=== PATIENT | female | born 1960 | race Caucasian/White ===

== ENCOUNTER 2018-03-22 10:27 | Outpatient (REF) | payer MEDICARE, SELFPAY ==
[2018-03-22 12:41] LABS: Hemoglobin A1C 5.2 % (4.5-6.2)
[2018-03-22 13:26] LABS: TSH (W/Ref FT4) 2.71 uIU/mL (0.358-3.74); Vitamin B12 488 pg/mL (193-986)
[2018-03-22 19:51] LABS: Bilirubin Negative (Negative); Blood Negative (Negative); Clarity Clear; Glucose Negative (Negative); Ketones Negative (Negative); Leukocyte Esterase Negative (Negative); Nitrite Negative (Negative); Specific Gravity <= 1.005 (1.005-1.025); Urobilinogen 0.2 EU/dL (Up TO 0.2); pH 6.5 (5-8)
[2018-03-23 07:29] LABS: Vitamin D 25 Total 22.5 ng/ml (30-100)
[2018-03-24 10:00] LABS: IgA 486 mg/dL (85-499); Interpretation SEE COMMENTS; Tissue Transglutaminase IgA 44.6 U/mL (<4.0)
== END 2018-03-22 10:47 ==
LOC: NCHCN 10:27
PROVIDERS: PCP Physician Assistant Medical; Visit Provider Family Medicine
DX: R35.0 Frequency of micturition (principal); R79.89 Other specified abnormal findings of blood chemistry; E03.9 Hypothyroidism, unspecified; K90.0 Celiac disease
CPT/HCPCS: 82306; 82784; 83516; 81003; 82607; 82746; 83036; 84443

== ENCOUNTER 2018-03-27 01:07 | Outpatient (CLI) | payer MEDICARE, MEDICAID, SELFPAY ==
--- NOTE | 2018-03-27 08:57 | DI.RAD_ITS ---
SYMPTOMS/DIAGNOSIS: RLQ ABD PAIN, R10.21, ASSESS QUANTITY OF STOOL KUB: Comparison CT scan is 12/05/17. There is a small amount of retained stool throughout the colon. No evidence of bowel obstruction is seen. The visualized lung bases are clear. Organomegaly is present. There are moderate degenerative changes again seen in the lumbar spine. IMPRESSION: Small amount of retained stool.
== END 2018-03-27 01:27 ==
PROVIDERS: PCP Physician Assistant Medical; Visit Provider Family Medicine
DX: R10.31 Right lower quadrant pain (principal); K59.00 Constipation, unspecified
CPT/HCPCS: 74018

== ENCOUNTER 2018-04-03 11:03 | Emergency (ER) | payer MEDICARE, MEDICAID, SELFPAY ==
--- NOTE | 2018-04-03 11:06 | NUR.NOTE ---
Nursing Note: Went to triage to bring patient back, patient is in bathroom
[2018-04-03 11:21] VITALS: BP 128/61; PULSE 70; RESP 1; TEMP 37.1; O2SAT 94
--- NOTE | 2018-04-03 12:38 | DI.CT_ITS ---
SYMPTOM/DIAGNOSIS: ABD PAIN, RLQ CT ABDOMEN AND PELVIS: CT scan of the abdomen and pelvis was performed following the uneventful administration of intravenous and oral contrast material. Comparison is 12/05/17. There is mild patient motion artifact. The lung bases are clear. The liver, spleen, pancreas, gallbladder, bile ducts, and adrenal glands are unremarkable. The kidneys show normal and symmetric enhancement. No evidence of a solid renal mass is seen. There is a large amount of urine within the bladder. The reproductive organs are unremarkable. The bowel has a normal appearance. There is a normal appendix present. The aorta is of normal caliber. No significant abdominal or pelvic adenopathy, ascites, or pneumoperitoneum is seen. Incidental note is made of a circum aortic left renal vein. Note is made of a small fat containing supraumbilical hernia. The bones are intact. IMPRESSION: 1. No evidence of an acute abdomen. 2. Markedly distended urinary bladder. The findings were discussed with Shekhar Russo of the Emergency Department on the date of the examination.
[2018-04-03] MEDS: Normal Saline 1,000 ML 1000 ML IV (12:54)
[2018-04-03 12:57] LABS: Abs Immature Grans 0.01 k/cumm (0.0-0.09); Absolute Basophil Count 0.03 k/cumm (0.0-0.2); Absolute Eosinophil Count 0.01 k/cumm (0.0-0.7); Absolute Lymphocyte Count 1.19 k/cumm (1.2-3.4); Absolute Monocyte Count 0.51 k/cumm (0.11-0.7); Absolute Neutrophil Count 3.49 k/cumm (1.2-6.7); Basophils % 0.6; Eosinophils % 0.2; HGB 15.4 g/dL (12.0-15.5); Immature Grans % 0.2; Lymphocytes % 22.7; Mean Corp. HGB Concentration 34.2 g/dL (32.0-36.0); Mean Corpuscular Hemoglobin 32.4 pg (27.0-33.0); Mean Corpuscular Volume 94.5 fL (80-95); Mean Platelet Volume 10.9 fL (8.0-11.0); Monocytes % 9.7; Neutrophils % 66.6; Platelet Count 236 x1000/uL (130-400); RBC 4.76 m/cumm (4.00-5.20); RBC Distribution Width 13.7 % (11.7-14.6); White Blood Cell Count 5.24 k/cumm (4.4-10.8)
[2018-04-03 13:14] LABS: ALT 32 U/L (12-78); AST 29 U/L (15-37); Albumin 3.9 g/dL (3.4-5.0); Alkaline Phosphatase 102 U/L (46-116); Anion Gap 8.5 mmol/L (3-11); BUN 10 mg/dL (7-18); Bilirubin, Total 0.8 mg/dL (0.2-1.0); CO2 28.5 mmol/L (21.0-32.0); CREATININE 0.63 mg/dL (0.55-1.02); Calcium 9.5 mg/dL (8.5-10.1); Chloride 96 mmol/L (98-107); Glucose 102 mg/dL (70-100); Lipase 95 U/L (73-393); Potassium 4.1 mmol/L (3.5-5.1); Sodium 133 mmol/L (136-145); Total Protein 7.7 g/dL (6.4-8.2)
[2018-04-03 14:56] LABS: Bilirubin Negative (Negative); Blood Negative (Negative); Clarity Clear; Glucose Negative (Negative); Ketones Negative (Negative); Leukocyte Esterase Negative (Negative); Nitrite Negative (Negative); Urobilinogen 0.2 EU/dL (Up TO 0.2)
--- NOTE | 2018-04-03 15:17 | W.ED.GENAD ---
Discharge Plan Disposition Patient Disposition: HOME Condition: Stable Discharge Details Chief Complaint: Abd Prob Clinical Impression: Urinary retention Primary Care Provider: Ady Awad ED Provider: Tony Russo Home Meds and New Rx's Prescriptions: Continue levothyroxine [Synthroid] 150 MCG tablet 150 mcg PO DAILY RF: 0 sertraline 25 MG tablet 0.25 mg PO DAILY RF: 0 Discontinued fluticasone [Flonase] 16 GM spray,suspension 50 mcg NS DAILY RF: 0 loratadine [Claritin Liqui-Gel] 10 MG capsule 10 mg PO DAILY RF: 0 Discharge Instructions Instructions: Lacey Catheter Placement and Care (ED), Acute Urinary Retention in Women (ED), Urinary Leg Bag (GEN) Additional Instructions: You should keep catheter in place and keep clean with above instructions. Please present to Dr. Rodriguez's office morning or Tuesday morning early in the morning for catheter removal and arrangement of follow-up appointment later that day. Otherwise you may resume your diet and activities as tolerated. Feel free to return to the emergency department for any new or significant worsening of symptoms. Referrals: Dani Rodriguez MD [ [facility] STAFF PHYSICIAN] - (Please present to the office on or TuesdayApril 06 or early in the morning for catheter removal. After the catheter is removed they will schedule a follow-up appointment for reassessment) Discharge Data Discharge Date/Time-TO BE ENTERED AT DEPARTURE: 04/03/18 17:12 Medical Decision Making Patient presenting to the emergency department for complaint of abdominal pain. Patient sister reports severe abdominal discomfort and sitting on the toilet a lot over the last 3 days with not a lot of bowel movements. Patient states lower abdominal pain. Denies any fever chills, nausea vomiting or diarrhea. Patient does have history of Down syndrome along with constipation and has had similar episodes in the past. Patient has had workup for constipation and even colonoscopy that showed no specific findings. Patient is tender in the right lower quadrant, and midline suprapubic which is severe otherwise no other acute findings noted. Plan to check labs, and CT image. Review of labs is unremarkable with patient was unable to urinate. Review of CT imaging shows significant distended bladder and staff assistant informed me that there were multiple episodes of patient attempting to go to the bathroom but was unable to. Given this Lacey catheter was placed and Dr. Rodriguez urologist was consulted. Dr. Rodriguez recommended Lacey catheter remaining in place until patient can follow-up in the office either or Tuesday and for patient is to present early in the morning for removal of catheter and follow-up appointment later that day. Discussed this plan of care and diagnosis with both patient and patient's sister and they were in agreement with plan. Informed them to return immediately for any fever chills new or significant worsening of symptoms. After discussion of diagnosis and plan of care patient is no further needs, questions, or concerns and states clear understanding to return to the emergency department for any worsening symptoms. Lab Data Lab results reviewed: Yes I reviewed the patient's lab results. HPI General Mode of arrival: ambulatory. Date/Time Provider Initiated Documentation: 04/03/18 11:17. Information obtained by: patient, family and RN notes reviewed. History of Present Illness 57 year old F presents to the emergency department with the chief complaint of Abd pain, described as moderate, with intensity rated at 7. Quality is described as aching and sharp, Patient started experiencing this day(s) (3) and it has been intermittent. No relieving factors improve symptom(s), No exacerbating factors reported . Patient notes no other symptoms.. Patient did receive the following treatments prior to arrival, other (Stool softener ) Related Data Home Medications Medication Instructions Recorded Confirmed levothyroxine [Synthroid] 150 mcg PO DAILY tab-cap NS 06/04/13 06/29/13 sertraline 0.25 mg PO DAILY tab-cap NS 06/04/13 06/29/13 Allergies Allergy/AdvReac Type Severity Reaction Status Date / Time dexamethasone Allergy Unknown Unverified 04/03/18 11:26 epinephrine Allergy Unknown Unverified 04/03/18 11:26 lidocaine Allergy Unknown Unverified 04/03/18 11:26 General Stated Complaint: Abd Prob ZACARIAS: 3 Review of Systems Constitutional Denies chills, Denies fever(s) and Reports poor appetite Cardiovascular Denies chest pain and Denies dyspnea Respiratory Denies dyspnea Gastrointestinal Reports as per HPI, Reports abdominal pain, Denies melena, Reports bloating, Denies change in bowel habits, Reports constipation, Denies diarrhea, Reports nausea and Denies vomiting Genitourinary Denies hematuria, Reports difficulty voiding, Denies urinary incontinence, Reports urinary hesitancy and Reports urinary urgency Integumentary/Breasts Denies rash [facility] Medical History Down syndrome (Acute) Social History Smoking/Tobacco Use Status: Former Tobacco Use Exam Const General: cooperative Orientation: alert, awake and oriented x3 Resp Effort & Inspection: normal respiratory effort and able to speak in complete sentences Auscultation: clear to auscultation bilaterally Cardio Rate: regular rate Rhythm: regular rhythm Heart Sounds: S1 normal and S2 normal GI Palpation: soft, no hepatosplenomegaly, not firm, no guarding, no masses, no pulsatile masses, not rigid, no splenomegaly and tender in the RLQ and at McBurney's point; Blackburn's sign negative and Rovsing's sign negative Auscultation: normal bowel sounds Back/Spine/Pelvis Back: no CVA tenderness Neuro General: alert, awake, oriented x3, gait normal and moves all extremities Course Vital Signs Temperature 37.1 C 04/03/18 11:21 Pulse 70 04/03/18 11:21 Respiratory Rate 1 L 04/03/18 11:21 Blood Pressure 128/61 04/03/18 11:21 Pulse Oximetry 94 L 04/03/18 11:21 Temperature 37.1 C 04/03/18 11:21 Temperature Source Temporal Artery Scan 04/03/18 11:21 Pulse 70 04/03/18 11:21 Respiratory Rate 1 L 04/03/18 11:21 Blood Pressure 128/61 04/03/18 11:21 Blood Pressure Position Sitting 04/03/18 11:21 Pulse Oximetry 94 L 04/03/18 11:21 Pain Level 8 04/03/18 11:21 Lab/Test Results Lab/Test Results: Laboratory Tests Range/Units 04/03/18 04/03/18 04/03/18 12:49 12:49 14:44 WBC (4.4-10.8) k/cumm 5.24 RBC (4.00-5.20) m/cumm 4.76 Hgb (12.0-15.5) g/dL 15.4 Hct (36.0-46.0) % 45.0 MCV (80-95) fL 94.5 MCH (27.0-33.0) pg 32.4 MCHC (32.0-36.0) g/dL 34.2 RDW (11.7-14.6) % 13.7 Plt Count (130-400) x1000/uL 236 MPV (8.0-11.0) fL 10.9 Immature Gran % 0.2 Neutrophils % 66.6 Lymphocytes % 22.7 Monocytes % 9.7 Eosinophils % 0.2 Basophils % 0.6 Absolute Neutrophils (1.2-6.7) k/cumm 3.49 Absolute Lymphocytes (1.2-3.4) k/cumm 1.19 L Absolute Monocytes (0.11-0.7) k/cumm 0.51 Absolute Eosinophils (0.0-0.7) k/cumm 0.01 Absolute Basophils (0.0-0.2) k/cumm 0.03 Sodium (136-145) mmol/L 133 L Potassium (3.5-5.1) mmol/L 4.1 Chloride (98-107) mmol/L 96 L Carbon Dioxide (21.0-32.0) mmol/L 28.5 Anion Gap (3-11) mmol/L 8.5 BUN (7-18) mg/dL 10 Creatinine (0.55-1.02) mg/dL 0.63 Estimated GFR/1.73 m2 (mL/min/1.73m2) >= 60.00 Glucose (70-100) mg/dL 102 H Calcium (8.5-10.1) mg/dL 9.5 Total Bilirubin (0.2-1.0) mg/dL 0.8 AST (15-37) U/L 29 ALT (12-78) U/L 32 Alkaline Phosphatase (46-116) U/L 102 Total Protein (6.4-8.2) g/dL 7.7 Albumin (3.4-5.0) g/dL 3.9 Lipase (73-393) U/L 95 Urine Color (Yellow) Yellow Urine Clarity Clear Urine pH (5-8) 6.0 Ur Specific [place] (1.005-1.025) 1.010 Urine Protein (Negative) mg/dL Negative Urine Ketones (Negative) mg/dL Negative Urine Blood (Negative) Negative Urine Nitrite (Negative) Negative Urine Bilirubin (Negative) Negative Urine Urobilinogen (Up TO 0.2) EU/dL 0.2 Ur Leukocyte Esterase (Negative) Negative Urine Glucose (Negative) mg/dL Negative
--- NOTE | 2018-04-03 15:20 | ED.GENADUL_ITS ---
Discharge Plan Disposition Patient Disposition: HOME Condition: Stable Discharge Details Chief Complaint: Abd Prob Clinical Impression: Urinary retention Primary Care Provider: Ady Awad ED Provider: Tony Russo Home Meds and New Rx's Prescriptions: Continue levothyroxine [Synthroid] 150 MCG tablet 150 mcg PO DAILY RF: 0 sertraline 25 MG tablet 0.25 mg PO DAILY RF: 0 Discontinued fluticasone [Flonase] 16 GM spray,suspension 50 mcg NS DAILY RF: 0 loratadine [Claritin Liqui-Gel] 10 MG capsule 10 mg PO DAILY RF: 0 Discharge Instructions Instructions: Lacey Catheter Placement and Care (ED), Acute Urinary Retention in Women (ED), Urinary Leg Bag (GEN) Additional Instructions: You should keep catheter in place and keep clean with above instructions. Please present to Dr. Rodriguez's office morning or Tuesday morning early in the morning for catheter removal and arrangement of follow-up appointment later that day. Otherwise you may resume your diet and activities as tolerated. Feel free to return to the emergency department for any new or significant worsening of symptoms. Referrals: Dani Rodriguez MD [ [facility] STAFF PHYSICIAN] - (Please present to the office on or TuesdayApril 06 or early in the morning for catheter removal. After the catheter is removed they will schedule a follow-up appointment for reassessment) Discharge Data Discharge Date/Time-TO BE ENTERED AT DEPARTURE: 04/03/18 17:12 Medical Decision Making Patient presenting to the emergency department for complaint of abdominal pain. Patient sister reports severe abdominal discomfort and sitting on the toilet a lot over the last 3 days with not a lot of bowel movements. Patient states lower abdominal pain. Denies any fever chills, nausea vomiting or diarrhea. Patient does have history of Down syndrome along with constipation and has had similar episodes in the past. Patient has had workup for constipation and even colonoscopy that showed no specific findings. Patient is tender in the right lower quadrant, and midline suprapubic which is severe otherwise no other acute findings noted. Plan to check labs, and CT image. Review of labs is unremarkable with patient was unable to urinate. Review of CT imaging shows significant distended bladder and administrative staff supervisor informed me that there were multiple episodes of patient attempting to go to the bathroom but was unable to. Given this Lacey catheter was placed and Dr. Rodriguez urologist was consulted. Dr. Rodriguez recommended Lacey catheter remaining in place until patient can follow-up in the office either or Tuesday and for patient is to present early in the morning for removal of catheter and follow-up appointment later that day. Discussed this plan of care and diagnosis with both patient and patient's sister and they were in agreement with plan. Informed them to return immediately for any fever chills new or significant worsening of symptoms. After discussion of diagnosis and plan of care patient is no further needs, questions, or concerns and states clear understanding to return to the emergency department for any worsening symptoms. Lab Data Lab results reviewed: Yes I reviewed the patient's lab results. HPI General Mode of arrival: ambulatory . Date/Time Provider Initiated Documentation: 04/03/18 11:17 . Information obtained by: patient, family and RN notes reviewed . History of Present Illness 57 year old F presents to the emergency department with the chief complaint of Abd pain, described as moderate, with intensity rated at 7. Quality is described as aching and sharp, Patient started experiencing this day(s) (3) and it has been intermittent. No relieving factors improve symptom(s), No exacerbating factors reported . Patient notes no other symptoms.. Patient did receive the following treatments prior to arrival, other (Stool softener ) Related Data Home Medications Medication Instructions Recorded Confirmed levothyroxine [Synthroid] 150 mcg PO DAILY tab-cap NS 06/04/13 06/29/13 sertraline 0.25 mg PO DAILY tab-cap NS 06/04/13 06/29/13 Allergies Allergy/AdvReac Type Severity Reaction Status Date / Time dexamethasone Allergy Unknown Unverified 04/03/18 11:26 epinephrine Allergy Unknown Unverified 04/03/18 11:26 lidocaine Allergy Unknown Unverified 04/03/18 11:26 General Stated Complaint: Abd Prob ZACARIAS: 3 Review of Systems Constitutional Denies chills, Denies fever(s) and Reports poor appetite Cardiovascular Denies chest pain and Denies dyspnea Respiratory Denies dyspnea Gastrointestinal Reports as per HPI, Reports abdominal pain, Denies melena, Reports bloating, Denies change in bowel habits, Reports constipation, Denies diarrhea, Reports nausea and Denies vomiting Genitourinary Denies hematuria, Reports difficulty voiding, Denies urinary incontinence, Reports urinary hesitancy and Reports urinary urgency Integumentary/Breasts Denies rash [facility] Medical History Down syndrome (Acute) Social History Smoking/Tobacco Use Status: Former Tobacco Use Exam Const General: cooperative Orientation: alert, awake and oriented x3 Resp Effort & Inspection: normal respiratory effort and able to speak in complete sentences Auscultation: clear to auscultation bilaterally Cardio Rate: regular rate Rhythm: regular rhythm Heart Sounds: S1 normal and S2 normal GI Palpation: soft, no hepatosplenomegaly, not firm, no guarding, no masses, no pulsatile masses, not rigid, no splenomegaly and tender in the RLQ and at McBurney's point; Blackburn's sign negative and Rovsing's sign negative Auscultation: normal bowel sounds Back/Spine/Pelvis Back: no CVA tenderness Neuro General: alert, awake, oriented x3, gait normal and moves all extremities Course Vital Signs Temperature 37.1 C 04/03/18 11:21 Pulse 70 04/03/18 11:21 Respiratory Rate 1 L 04/03/18 11:21 Blood Pressure 128/61 04/03/18 11:21 Pulse Oximetry 94 L 04/03/18 11:21 Temperature 37.1 C 04/03/18 11:21 Temperature Source Temporal Artery Scan 04/03/18 11:21 Pulse 70 04/03/18 11:21 Respiratory Rate 1 L 04/03/18 11:21 Blood Pressure 128/61 04/03/18 11:21 Blood Pressure Position Sitting 04/03/18 11:21 Pulse Oximetry 94 L 04/03/18 11:21 Pain Level 8 04/03/18 11:21 Lab/Test Results Lab/Test Results: Laboratory Tests Range/Units 04/03/18 04/03/18 04/03/18 12:49 12:49 14:44 WBC (4.4-10.8) k/cumm 5.24 RBC (4.00-5.20) m/cumm 4.76 Hgb (12.0-15.5) g/dL 15.4 Hct (36.0-46.0) % 45.0 MCV (80-95) fL 94.5 MCH (27.0-33.0) pg 32.4 MCHC (32.0-36.0) g/dL 34.2 RDW (11.7-14.6) % 13.7 Plt Count (130-400) x1000/uL 236 MPV (8.0-11.0) fL 10.9 Immature Gran % 0.2 Neutrophils % 66.6 Lymphocytes % 22.7 Monocytes % 9.7 Eosinophils % 0.2 Basophils % 0.6 Absolute Neutrophils (1.2-6.7) k/cumm 3.49 Absolute Lymphocytes (1.2-3.4) k/cumm 1.19 L Absolute Monocytes (0.11-0.7) k/cumm 0.51 Absolute Eosinophils (0.0-0.7) k/cumm 0.01 Absolute Basophils (0.0-0.2) k/cumm 0.03 Sodium (136-145) mmol/L 133 L Potassium (3.5-5.1) mmol/L 4.1 Chloride (98-107) mmol/L 96 L Carbon Dioxide (21.0-32.0) mmol/L 28.5 Anion Gap (3-11) mmol/L 8.5 BUN (7-18) mg/dL 10 Creatinine (0.55-1.02) mg/dL 0.63 Estimated GFR/1.73 m2 (mL/min/1.73m2) >= 60.00 Glucose (70-100) mg/dL 102 H Calcium (8.5-10.1) mg/dL 9.5 Total Bilirubin (0.2-1.0) mg/dL 0.8 AST (15-37) U/L 29 ALT (12-78) U/L 32 Alkaline Phosphatase (46-116) U/L 102 Total Protein (6.4-8.2) g/dL 7.7 Albumin (3.4-5.0) g/dL 3.9 Lipase (73-393) U/L 95 Urine Color (Yellow) Yellow Urine Clarity Clear Urine pH (5-8) 6.0 Ur Specific [place] (1.005-1.025) 1.010 Urine Protein (Negative) mg/dL Negative Urine Ketones (Negative) mg/dL Negative Urine Blood (Negative) Negative Urine Nitrite (Negative) Negative Urine Bilirubin (Negative) Negative Urine Urobilinogen (Up TO 0.2) EU/dL 0.2 Ur Leukocyte Esterase (Negative) Negative Urine Glucose (Negative) mg/dL Negative
[2018-04-03 16:48] VITALS: BP 108/59; PULSE 69; RESP 16; O2SAT 99
== END 2018-04-03 17:12 | disposition home or self-care (01) ==
PROVIDERS: Emergency Provider Nurse Practitioner Family; PCP Physician Assistant Medical
DX: R33.9 Retention of urine, unspecified (principal); R10.31 Right lower quadrant pain; Q90.9 Down syndrome, unspecified
CPT/HCPCS: 36415; 51702; 80053; 83690; 96360; 99285; 74177; 81003; 85025; 99284

== ENCOUNTER → 2018-04-06 08:05 | Outpatient (BNVA) | payer MEDICARE, MEDICAID, SELFPAY | PROVIDERS: PCP Physician Assistant Medical; Visit Provider Urology | DX: R33.9 Retention of urine, unspecified (principal); K59.00 Constipation, unspecified; Q90.9 Down syndrome, unspecified | CPT/HCPCS: 51798; 99213 ==

== ENCOUNTER → 2018-04-25 08:47 | Outpatient (BNVA) | payer MEDICARE, MEDICAID, SELFPAY | PROVIDERS: PCP Physician Assistant Medical; Visit Provider Urology | DX: R33.9 Retention of urine, unspecified (principal); K59.00 Constipation, unspecified; Q90.9 Down syndrome, unspecified | CPT/HCPCS: 51798; 99213 ==

== ENCOUNTER 2018-05-08 00:50 | Outpatient (CLI) | payer MEDICARE, MEDICAID, SELFPAY ==
--- NOTE | 2018-05-08 13:50 | MERGE_ITS ---
*[facility]* *[facility]* [address] [place] [address] Date of study: 05/08/2018 Transthoracic Echocardiography M-mode, complete 2D, complete spectral Doppler, and color Doppler *STUDY CONCLUSIONS* Summary: 1. Left ventricle: The cavity size was normal. Systolic function was hyperdynamic. The estimated ejection fraction was 65-70%. Diastolic parameters were normal. There was no evidence of elevated ventricular filling pressure by Doppler parameters. 2. Aortic valve: There was mild stenosis. There was mild regurgitation. Peak velocity (S): 2.6m/sec. Mean gradient (S): 11.3mm Hg. VTI ratio of LVOT to aortic valve: 0.66. Valve area (VTI): 1.8cm^2. 3. Mitral valve: There was mild regurgitation. 4. Right ventricle: The cavity size was normal. Wall thickness was normal. Systolic function was normal. 5. Atrial septum: No defect or patent foramen ovale was identified. 6. Pulmonary arteries: Pulmonary systolic pressure was in the range of 25mm Hg to 35mm Hg. 7. Inferior vena cava: The vessel was normal in size. The respirophasic diameter changes were in the normal range (greater than or equal to 50%), consistent with normal central venous pressure. *PATIENT PRESENTATION* Height: 149.9cm ((59in) ) S/D Pressure: 132 / 60 Weight: 53.5kg ((117.8lb) ) BSA: 1.5m^2 Test start time: 02:00 PM. Test stop time: 03:00 PM. ORDERING Marisol Trotter REFERRING Marisol Trotter PERFORMING Unknown PERFORMING [facility] HAY BUCKLER Jessica Pryor, RT (R)(CT), RDCS *PROCEDURE DATA* Procedure information: This study was interpreted by [facility]. Pertinent images and digital data are archived for permanent storage and are available for subsequent review. Comparison was made to the study of 01/25/2002. Study status: Routine. Transthoracic echocardiography. M-mode, complete 2D, complete spectral Doppler, and color Doppler. A Transthoracic Echocardiogram was performed. Scanning was performed from the parasternal, apical, subcostal, and suprasternal notch acoustic windows. Images were obtained using an [id number] cardiac ultrasound machine. Image quality was adequate. Study completion: The patient tolerated the procedure well. History: PMH: Systolic heart murmur; echo 12/2001 no prophylaxis needed. down syndrome, loud systolic murmur, apparently has had prior echo but cannot find. *CARDIAC ANATOMY* Left ventricle: The cavity size was normal. Systolic function was hyperdynamic. The estimated ejection fraction was 65-70%. The tissue Doppler parameters were normal. Diastolic parameters were normal. There was no evidence of elevated ventricular filling pressure by Doppler parameters. Aortic valve: Trileaflet. Doppler: There was mild stenosis. There was mild regurgitation. VTI ratio of LVOT to aortic valve: 0.66. Valve area (VTI): 1.8cm^2. Indexed valve area (VTI): 1.2cm^2/m^2. Peak velocity ratio of LVOT to aortic valve: 0.56. Valve area (Vmax): 1.5cm^2. Indexed valve area (Vmax): 1cm^2/m^2. Mean velocity ratio of LVOT to aortic valve: 0.71. Valve area (Vmean): 1.9cm^2. Indexed valve area (Vmean): 1.3cm^2/m^2. Mean gradient (S): 11.3mm Hg. Peak gradient (S): 27.9mm Hg. Aorta: Aortic root: The aortic root was normal in size. Mitral valve: Doppler: There was no evidence for stenosis. There was mild regurgitation. Valve area by pressure half-time: 6cm^2. Indexed valve area by pressure half-time: 4cm^2/m^2. Peak gradient (D): 7.5mm Hg. Left atrium: The atrium was normal in size. Atrial septum: No defect or patent foramen ovale was identified. Right ventricle: The cavity size was normal. Wall thickness was normal. Systolic function was normal. Pulmonic valve: Doppler: There was no evidence for stenosis. There was mild regurgitation. Peak gradient (S): 6.8mm Hg. Tricuspid valve: Doppler: There was mild regurgitation. Pulmonary artery: Poorly visualized. Pulmonary systolic pressure was in the range of 25mm Hg to 35mm Hg. Right atrium: The atrium was normal in size. Pericardium: There was no pericardial effusion. Systemic veins: Inferior vena cava: The vessel was normal in size. The respirophasic diameter changes were in the normal range (greater than or equal to 50%), consistent with normal central venous pressure. Baseline ECG: Normal sinus rhythm. Measurements Left ventricle Value Reference LV ID, ED, PLAX 4.0 cm 3.5 - 6.0 LV ID, ES, PLAX 2.4 cm 2.1 - 4.0 LV PW thickness, ED, PLAX 0.8 cm LV end-diastolic volume, 1-p A2C 58 ml LV ejection fraction, 1-p A2C 68 % LV end-diastolic volume, 1-p A4C 60 ml LV ejection fraction, 1-p A4C 66 % LV e', lateral 0.153 m/sec LV E/e', lateral 9 LV e', medial 0.119 m/sec LV E/e', medial 12 LV e', average 0.136 m/sec LV E/e', average 10 Ventricular septum Value Reference IVS thickness, ED, PLAX 0.7 cm LVOT Value Reference LVOT ID, A-P 1.9 cm LVOT area 2.7 cm^2 LVOT peak velocity, S 1.48 m/sec LVOT mean velocity, S 1.1 m/sec LVOT VTI, S 30.5 cm LVOT peak gradient, S 8.7 mm Hg LVOT mean gradient, S 5.2 mm Hg Stroke volume (SV), LVOT DP 83 ml Stroke index (SV/bsa), LVOT DP 55 ml/m^2 Aortic valve Value Reference Aortic valve peak velocity, S 2.6 m/sec Aortic valve mean velocity, S 1.55 m/sec Aortic valve VTI, S 46.0 cm Aortic mean gradient, S 11.3 mm Hg Aortic peak gradient, S 27.9 mm Hg VTI ratio, LVOT/AV 0.66 Aortic valve area, VTI 1.8 cm^2 Velocity ratio, peak, LVOT/AV 0.56 Aortic valve area, peak velocity 1.5 cm^2 Velocity ratio, mean, LVOT/AV 0.71 Aortic valve area, mean velocity 1.9 cm^2 Aortic valve area/bsa, mean velocity 1.3 cm^2/m^2 Aorta Value Reference Aortic root ID, ED 2.5 cm Left atrium Value Reference LA ID, A-P, ES 2.7 cm LA ID/bsa, A-P 1.8 cm/m^2 <=2.2 LA area, ES, A4C 13.9 cm^2 8.8 - 23.4 LA area, ES, A2C 10 cm^2 LA volume/bsa, ES, 1-p A4C 23 ml/m^2 LA volume, ES, 2-p 25 ml LA volume/bsa, ES, 2-p 17 ml/m^2 LA/aortic root ratio 1.08 Mitral valve Value Reference Mitral E-wave peak velocity 1.37 m/sec Mitral A-wave peak velocity 1.81 m/sec Mitral deceleration time (L) 126 ms 150 - 230 Mitral pressure half-time 36 ms Mitral peak gradient, D 7.5 mm Hg Mitral E/A ratio, peak 0.76 Mitral valve area, PHT, DP 6 cm^2 Pulmonary veins Value Reference Pulmonary vein peak velocity, S 0.91 m/sec Pulmonary vein peak velocity, D 0.87 m/sec Pulmonary vein velocity ratio, peak, 1.04 S/D Pulmonary vein A-wave reversal peak 0.39 m/sec velocity Tricuspid valve Value Reference Tricuspid regurg peak velocity 2.6 m/sec Tricuspid peak RV-RA gradient 27.1 mm Hg Right atrium Value Reference RA area, ES, A4C 9.9 cm^2 8.3 - 19.5 Pulmonic valve Value Reference Pulmonic peak gradient, S 6.8 mm Hg Legend: (L) and (H) connie values outside specified reference range. I have personally reviewed the images and have reviewed and edited the reported findings. Electronically signed by Eligio Benson MD 05/08/2018 17:17
== END 2018-05-08 01:10 ==
PROVIDERS: PCP Physician Assistant Medical; Visit Provider Family Medicine
DX: R01.1 Cardiac murmur, unspecified (principal); I35.2 Nonrheumatic aortic (valve) stenosis with insufficiency; I34.0 Nonrheumatic mitral (valve) insufficiency; Q90.9 Down syndrome, unspecified
CPT/HCPCS: 93306

== ENCOUNTER 2018-05-16 01:27 | Outpatient (CLI) | payer MEDICARE, MEDICAID, SELFPAY ==
--- NOTE | 2018-05-16 15:06 | DI.RAD_ITS ---
SYMPTOMS/DIAGNOSIS: CELIAC DISEASE, HIGH TITERS 2015, K90.0, SCREENING FOR OSTEOPOROSIS, Z78.0 DEXA SCAN: The scanogram shows no compression fractures identified. Degenerative changes involving the lumbar spine are evident. t For the left forearm, a T score of -2.7 and a Z score of -1.7 indicate osteoporosis and an increased fracture risk. For the left hip, a T score of -2.7 and a Z score of -2.0 are consistent with osteoporosis and an increased fracture. For the lumbar spine, a T score of -0.5 and a Z score of 0.6 are within the normal range.
== END 2018-05-16 01:47 ==
PROVIDERS: PCP Physician Assistant Medical; Visit Provider Family Medicine
DX: K90.0 Celiac disease (principal); M81.0 Age-related osteoporosis without current pathological fracture
CPT/HCPCS: 77080

== ENCOUNTER → 2018-06-27 13:13 | Outpatient (BNVA) | payer MEDICARE, MEDICAID, SELFPAY | PROVIDERS: PCP Physician Assistant Medical; Visit Provider Urology | DX: R33.9 Retention of urine, unspecified (principal) | CPT/HCPCS: 51798; 99213 ==

== ENCOUNTER 2018-08-23 08:29 | Outpatient (REF) | payer MEDICARE, MEDICAID, SELFPAY ==
[2018-08-23 14:03] LABS: TSH (W/Ref FT4) 0.07 uIU/mL (0.358-3.74)
[2018-08-23 14:19] LABS: FREE T4 1.14 ng/dL (0.76-1.46)
[2018-08-24 07:57] LABS: Vitamin D 25 Total 25.7 ng/ml (30-100)
== END 2018-08-23 08:49 ==
LOC: NCHCN 08:29
PROVIDERS: PCP Physician Assistant Medical; Visit Provider Family Medicine
DX: E03.9 Hypothyroidism, unspecified (principal); M81.0 Age-related osteoporosis without current pathological fracture; K90.0 Celiac disease
CPT/HCPCS: 82306; 83516; 84439; 84443

== ENCOUNTER → 2018-09-22 10:19 | Outpatient (BNVA) | payer MEDICARE, MEDICAID, SELFPAY | PROVIDERS: PCP Physician Assistant Medical; Visit Provider Urology | DX: R33.9 Retention of urine, unspecified (principal); Q90.9 Down syndrome, unspecified | CPT/HCPCS: 51798; 99213 ==

== ENCOUNTER → 2018-12-22 09:51 | Outpatient (BNVA) | payer MEDICARE, MEDICAID, SELFPAY | PROVIDERS: PCP Family Medicine; Visit Provider Urology | DX: R33.9 Retention of urine, unspecified (principal); Q90.9 Down syndrome, unspecified | CPT/HCPCS: 51798; 99213 ==

== ENCOUNTER 2019-02-22 14:43 | Outpatient (REF) | payer MEDICARE, MEDICAID, SELFPAY ==
[2019-02-22 16:18] LABS: TSH (W/Ref FT4) 0.02 uIU/mL (0.36-3.74)
[2019-02-22 16:42] LABS: FREE T4 1.49 ng/dL (0.76-1.46)
[2019-02-23 23:42] LABS: Tissue Transglutaminase Ab IgA 18.8 U/mL
== END 2019-02-22 15:03 ==
LOC: NCHCN 14:43
PROVIDERS: PCP Family Medicine; Visit Provider Family Medicine
DX: E03.9 Hypothyroidism, unspecified (principal); K90.0 Celiac disease; M81.0 Age-related osteoporosis without current pathological fracture
CPT/HCPCS: 82306; 83516; 84439; 84443

== ENCOUNTER → 2019-03-16 12:25 | Outpatient (BNVA) | payer MEDICARE, MEDICAID, SELFPAY | PROVIDERS: PCP Family Medicine; Referring Provider Family Medicine; Visit Provider Urology | DX: R33.9 Retention of urine, unspecified (principal); Q90.9 Down syndrome, unspecified | CPT/HCPCS: 51798; 99212 ==

== ENCOUNTER → 2019-10-23 12:28 | Outpatient (BNVA) | payer MEDICARE, MEDICAID, SELFPAY | PROVIDERS: PCP Family Medicine; Referring Provider Family Medicine; Visit Provider Nurse Practitioner Gerontology | DX: R33.8 Other retention of urine (principal) | CPT/HCPCS: 99213 ==

== ENCOUNTER 2019-10-31 18:18 | Outpatient (REF) | payer MEDICARE, MEDICAID, SELFPAY ==
[2019-10-31 17:13] LABS: Bilirubin Negative (Negative); Blood Negative (Negative); Clarity Clear (Clear); Glucose Negative (Negative); Ketones Negative (Negative); Leukocyte Esterase Large (Negative); Nitrite Negative (Negative); Urobilinogen 0.2 EU/dL (Up TO 0.2); pH 7.5 (5-8)
[2019-10-31 17:26] LABS: RBC 0-2 HPF (0-2); WBC 20-50 HPF (0-5)
[2019-10-31 17:27] LABS: Bacteria Moderate HPF (Negative); C & S Indicated? No; Casts Negative LPF (Negative); Crystals Negative HPF (Negative); Epithelial Cells Moderate HPF (Negative); Mucus Trace (Negative)
== END 2019-10-31 18:38 ==
LOC: NCHCN 18:18
PROVIDERS: PCP Family Medicine; Visit Provider Family Medicine
DX: R33.9 Retention of urine, unspecified (principal); R41.3 Other amnesia
CPT/HCPCS: 81003; 81015

== ENCOUNTER 2019-11-14 19:00 | Outpatient (REF) | payer MEDICARE, MEDICAID, SELFPAY ==
[2019-11-14 20:16] LABS: TSH (W/Ref FT4) 0.37 uIU/mL (0.36-3.74)
[2019-11-15 04:54] LABS: Vitamin D 25 Total 43.8 ng/ml (30-100)
[2019-11-16 14:30] LABS: Mumps Antibody IgG Positive (See Note); Rubella IgG Ab (UVM) Positive (See Note)
[2019-11-17 06:54] LABS: Measles (Rubeola), IgM Negative (Negative)
[2019-11-19 16:18] LABS: Tissue Transglutaminase Ab IgA 12.6 U/mL; Tissue Transglutaminase Ab IgG 4.8 U/mL
== END 2019-11-14 19:20 ==
LOC: NCHCN 19:00
PROVIDERS: PCP Family Medicine; Visit Provider Family Medicine
DX: E03.9 Hypothyroidism, unspecified (principal); M81.0 Age-related osteoporosis without current pathological fracture; Z11.59 Encounter for screening for other viral diseases; Z01.84 Encounter for antibody response examination
CPT/HCPCS: 82306; 86765; 83516; 84443; 86735; 86762

== ENCOUNTER → 2020-02-12 12:54 | Outpatient (BNVA) | payer MEDICARE, MEDICAID, SELFPAY | PROVIDERS: PCP Family Medicine; Visit Provider Nurse Practitioner Gerontology | DX: R33.8 Other retention of urine (principal); Q90.9 Down syndrome, unspecified | CPT/HCPCS: 99213 ==

== ENCOUNTER 2020-08-04 17:03 | Outpatient (REF) | payer MEDICARE, MEDICAID, SELFPAY ==
--- NOTE | 2020-08-04 16:00 | PAPFT_PTH ---
PATIENT: Kalani Larry LOC: [facility]#:[id number] AGE/SX: 59/F ROOM: RE08/04/[address]: Marisol Trotter : 1960 BED: DIS: 08/04/2020 SPEC #: [id number] RECD: 08/04/20 18:18 STATUS: DIDIER REMikayla #: [id number] HERNAN: 08/04/20 16:[address]: Marisol Trotter DEPT: ON LICENSE OF [facility] Cytology RECD BY: Darlene Singh Tissues: 1 - CX/ENDOCX FOR PAP SMEARS Procedures: PAP THIN PREP/UVM Screening HPV DNA PROBE Comments: [id number]
--- OUTSIDE RECORDS SUMMARY | 2020-08-04 17:12 | XMS_ITS ---
:1960 Author Care Team Providers Name Role Phone DR. JO ANN TOMLINSON Primary Care Provider [phone] DR. JO ANN TOMLINSON Referring Provider [phone] Allergies Code Code System Name Reaction Severity Status Onset 61264 RxNorm Levothyroxine ? ? Active ? 6387 RxNorm Lidocaine ? ? Active ? Medications Name Status Start Date Stop Date ? ? amoxicillin 500 mg capsule Active ? Not a vailable Take 1 capsule every 8 hours by oral route as needed. sertraline 50 mg tablet Active ? Not avai lable Take 1 tablet every day by oral route. Synthroid 112 mcg tablet Active ? Not cece ilable Take 1 tablet every day by oral route. Vitamin B-12 Active ? Not available 100 MCG Problems None recorded. Procedures Date Name Performed by ? ? Colonoscopy Information not avai lable ? Total Knee Arthroplasty Information not available Notes: Right ? Carpal Tunnel Surgery Information not av ailable Notes: Right ? Tubal Ligation Information not avai lable Results Lab Results None recorded. Past Encounters None recorded. Social History Tobacco Smoking Status Former Smoker Vaccine List None recorded. Plan of Care Reminders Provider Appointments None ? ? recorded. Lab None ? ? recorded. Referral None ? ? recorded. Procedures None ? ? recorded. Surgeries None ? ? recorded. Imaging None ? ? recorded. Vitals Height Weight BMI Blood Pressure 149.86 cm 58.06 kg 25.9 kg/m2 120/52 mm[Hg]
[2020-08-04 18:59] LABS: Hemoglobin A1C 5.3 % (<5.7)
[2020-08-04 19:16] LABS: Vitamin D 25 Total 46.4 ng/ml (30-100)
[2020-08-04 19:21] LABS: BUN 15 mg/dL (7-18); CREATININE 0.9 mg/dL (0.55-1.02); Calcium 8.9 mg/dL (8.5-10.1); Chloride 104 mmol/L (98-107); Folate 6.6 ng/mL (8.6-20.0); Glucose 107 mg/dL (74-106); Potassium 4.3 mmol/L (3.5-5.1); Sodium 140 mmol/L (136-145); Vitamin B12 322 pg/mL (193-986)
[2020-08-06 11:25] LABS: Hepatitis C Ab w Rflx HCV PCR Negative (Negative)
[2020-08-06 11:43] LABS: HIV-1/2 Ag & Ab Screen Negative (Negative)
[2020-08-06 11:50] LABS: Syphilis Serology (RPR) Negative (Negative)
[2020-08-06 17:45] LABS: Tissue Transglutaminase Ab IgA 15.9 U/mL
== END 2020-08-04 17:04 | disposition home or self-care (01) ==
LOC: NCHCN 17:03
PROVIDERS: PCP Family Medicine; Visit Provider Family Medicine
DX: K90.0 Celiac disease (principal); E55.9 Vitamin D deficiency, unspecified; E03.9 Hypothyroidism, unspecified; R73.09 Other abnormal glucose; R41.3 Other amnesia; Q90.9 Down syndrome, unspecified; I73.00 Raynaud's syndrome without gangrene; Z11.4 Encounter for screening for human immunodeficiency virus [HIV]; Z11.59 Encounter for screening for other viral diseases; Z12.4 Encounter for screening for malignant neoplasm of cervix; Z11.51 Encounter for screening for human papillomavirus (HPV)
CPT/HCPCS: 80048; 82306; 86803; 87389; 88142; 82607; 82746; 83036; 83516; 84443; 86592; 87624

== ENCOUNTER → 2020-08-12 14:53 | Outpatient (BNVA) | payer MEDICARE, MEDICAID, SELFPAY | PROVIDERS: PCP Family Medicine; Referring Provider Family Medicine; Visit Provider Nurse Practitioner Gerontology | DX: R33.8 Other retention of urine (principal) | CPT/HCPCS: 51702; 99213 ==

== ENCOUNTER → 2020-08-14 14:55 | Outpatient (BNVA) | payer MEDICARE, MEDICAID, SELFPAY | PROVIDERS: PCP Family Medicine; Referring Provider Family Medicine; Visit Provider Nurse Practitioner Gerontology | DX: R33.8 Other retention of urine (principal) | CPT/HCPCS: 99213 ==

== ENCOUNTER 2020-09-06 04:31 | Observation (INO) | payer MEDICARE, MEDICAID, SELFPAY ==
[2020-09-06] VITALS (62 sets, daily range): BP systolic 93–153; BP diastolic 42–126; PULSE 55–109; RESP 12–20; TEMP 35.8–36.7; O2SAT 95–100
--- NOTE | 2020-09-06 04:36 | ED.GENADUL_ITS ---
Discharge Plan Disposition Patient Disposition: [facility] INPATIENT Condition: Fair Discharge Details Clinical Impression: New onset seizure Primary Care Provider: Marisol Trotter ED Provider: Benson Rojas Meds and New Rx's Prescriptions: No Action polyethylene glycol 3350 [Miralax] 17 gram powder in packet 17 gm PO DAILY Qty: 30 RF: 0 B12 Active 1,000 mcg tablet,chewable 1,000 mcg PO DAILY RF: 0 sertraline 25 mg tablet 25 mg PO DAILY RF: 0 levothyroxine [Synthroid] 100 mcg tablet 100 mcg PO DAILY RF: 0 cholecalciferol (vitamin D3) 25 mcg (1,000 unit) capsule 50 mcg PO DAILY RF: 0 amoxicillin 500 mg capsule 2,000 mg PO .prior to dental RF: 0 alendronate [Fosamax] 70 mg tablet 70 mg PO QWEEK RF: 0 Medical Decision Making Certainly sounds like probable seizure this morning with postictal period and now returned close to baseline. Recent head injury no prior history of seizure must consider ongoing or other intracranial hemorrhage. Does not appear to have any neck pain but given she is a Down syndrome patient, will obtain C-spine CT with head CT. Place IV and check laboratory studies. Will obtain straight cath urine. Will observe for any further neurologic change. 07:45 - Patient remains quite sleepy. She has sat up and looked around and said hi to her sister. Mostly sleeping and mostly still not really verbal. Sister states patient usually very verbal with good vocabulary. CT head and neck negative for any acute process. Evidence of old prior lacunar stroke. Labs unremarkable. Given prolonged post-ictal state with continued altered mental status have decided to load patient with Keppra pain as discussed with hospitalist for observation admission until back to baseline mental status. I do not suspect infectious cause with no history of illness and no fever with normal white count here. She does appear to be nonfocal and moves all extremities equally. Sister does remark that patient is slowly coming back to what she feels is baseline. At this point just remarkably sleeping still. Discussed with hospitalist who is accepted patient for admission. Lab Data Lab results reviewed: Yes I reviewed the patient's lab results. HPI General Mode of arrival: EMS . Date/Time Provider Initiated Documentation: 09/06/20 04:36 . Limitations to Documentation: altered mental status . Information obtained by: family and RN notes reviewed . HPI Narrative: Patient presents to the ED status post unresponsive event at home. 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 Patient has Down syndrome. Per the sister the patient had a fall few days ago with presumed head strike against a pool table. Patient has bruising and scrapes to the right side of her head and face. She was not evaluated at that time. Since then sister has been sleeping downstairs with the patient so as to prevent patient from getting up and wandering around at night. At about 3:00 this morning patient abruptly got up but sister told her it was not time to get up and patient went back to bed. Very shortly after that patient's breathing became different. Sister got up to see what was going on. Reports that the patient was unresponsive and stiff and rigid throughout. She began to have gurgling noises and abnormal respirations. Eventually the rigidness went away after 1 to 2 minutes. Patient was then unresponsive for a period of time. EMS was contacted. Patient was brought here and is now awake and baseline per sister. No prior history of seizures. No prior history of strokes. Related Data Home Medications Medication Instructions Recorded Confirmed polyethylene glycol 3350 17 gram 17 gm PO DAILY #30 each 04/06/18 09/06/20 oral powder packet sertraline 25 mg tablet 25 mg PO DAILY 02/12/20 09/06/20 alendronate 70 mg tablet 70 mg PO QWEEK 08/12/20 09/06/20 amoxicillin 500 mg capsule 2,000 mg PO .prior to dental cap 08/12/20 09/06/20 cholecalciferol (vitamin D3) 25 50 mcg PO DAILY cap 08/12/20 09/06/20 mcg (1,000 unit) capsule levothyroxine 100 mcg tablet 100 mcg PO DAILY 08/12/20 09/06/20 mecobalamin (vitamin B12) 1,000 1,000 mcg PO DAILY 08/12/20 09/06/20 mcg chewable tablet Previous Rx's Medication Instructions Recorded polyethylene glycol 3350 17 gram 17 gm PO DAILY #30 each 04/06/18 oral powder packet Allergies Allergy/AdvReac Type Severity Reaction Status Date / Time dexamethasone Allergy Unknown Unverified 09/06/20 04:50 epinephrine Allergy Unknown Unverified 09/06/20 04:50 lidocaine Allergy Unknown Unverified 09/06/20 04:50 levothyroxine AdvReac alopecia Verified 09/06/20 04:50 no generic Synthroid General ZACARIAS: 3 Review of Systems Narrative: 03/12 Review of Systems completed and is negative except as stated above in HPI (Systems reviewed: Const, Eyes, ENT, Resp, CV, GI, , MSK, Skin, Neuro) [facility] Medical History Abnormal gait Anxiety Aortic stenosis Celiac disease Down syndrome Hypothyroidism Memory impairment Osteoporosis Raynauds phenomenon Urinary retention with incomplete bladder emptying Ventral hernia Vitamin D deficiency Surgical History S/P TKR (total knee replacement) Social History Smoking/Tobacco Use Status: Former Tobacco Use Smoking risk assessment performed?: Yes Alcohol Intake: never Drug use: Never Substance use type: does not use Do you feel safe at home: Yes Do you feel safe in your relationship?: Yes Exam Narrative Exam Narrative: Const: WDWN female in NAD. HEENT: NC. Bruising around the right eye and cheek with abrasions near right zygomatic arch. Eyes: PERRL. EOMI Neck: Supple. Trachea midline. Lungs: Normal respiratory effort. Lungs are clear. Cor: RRR without murmur/gallop. Good radial pulses. GI: Soft. NT/ND. No guarding or rebound. Neuro: Awake and alert. Cranial nerves II - XII grossly intact. No gross motor or sensory deficit. Ext: No C/C/E. No deformity Skin: Warm and dry.
[2020-09-06 05:11] LABS: Absolute Basophil Count 0.07 10^3/uL (0.0-0.2); Absolute Eosinophil Count 0.07 10^3/uL (0.0-0.7); Absolute Lymphocyte Count 2.66 10^3/uL (1.2-3.4); Absolute Monocyte Count 0.58 10^3/uL (0.1-0.8); Absolute Neutrophil Count 2.39 10^3/uL (1.2-6.7); Basophils % 1.2; Eosinophils % 1.2; HCT 45.5 % (36.0-46.0); Lymphocytes % 46.1; MCH 32.3 pg (27.0-33.0); MCV 98.1 fL (80-95); Monocytes % 10.1; Neutrophils % 41.4; Nucleated RBC 0 %; Platelet Count 241 10^3/uL (130-400); RBC 4.64 10^6/uL (3.93-5.22); RDW 13.5 % (11.7-14.6); RDW-SD 49.2 fL; WBC 5.77 10^3/uL (4.4-10.8)
--- NOTE | 2020-09-06 05:27 | DI.CT_ITS ---
EXAM: CT HEAD CERVICAL SPINE WO CLINICAL HISTORY: recent fall with head injury. TECHNIQUE: Imaging Protocol: Axial computed tomography images with coronal and sagittal reformatted images were created and reviewed COMPARISON: No exams were available for comparison FINDINGS: The examination is limited due to patient motion artifact. CT Head: Ventricles and Extra axial spaces: Normal in size and morphology for the patient's age. Hemorrhage: None. Cerebral parenchyma: Old lacunar infarct in left basal ganglia. No evidence of an acute territorial infarct. Bilateral basal gangliar calcifications are present. Midline shift: None. Brainstem/Cerebellum: Normal. Calvarium: Normal. Visualized Paranasal sinuses/Mastoids: Clear. Soft Tissues: Unremarkable. CT Cervical Spine: Bones: No acute fracture or subluxation. Degenerative changes are seen in the cervical spine. There is straightening of the normal cervical lordosis. This may be due to muscle spasm or patient positio josseline. Soft Tissues: Unremarkable. Lung Apices: Clear. IMPRESSION: 1. No acute intracranial process. 2. No acute fracture or subluxation in the cervical spine. RADIATION DOSE DELIVERED: 1,312.02mGy.cm Total DLP DATA REPOSITORY: All CT scans at this facility are submitted to the National Radiology Data Registry (NRDR) Dose Index Registry (DIR) with the [employer] (ACR). RADIATION OPTIMIZATION: All CT scans at this facility use at least one of these dose optimization te chniques: automated exposure control; mA and/or kV adjustment per patient size (includes targeted exa ms where dose is matched to clinical indication); or iterative reconstruction.
[2020-09-06 05:32] LABS: ALT 32 U/L (14-59); AST 26 U/L (15-37); Albumin 3.3 g/dL (3.4-5.0); Alkaline Phosphatase 136 U/L (46-116); Anion Gap 6.2 mmol/L (3-11); BUN 15 mg/dL (7-18); Bilirubin, Total 0.3 mg/dL (0.2-1.0); CO2 29.8 mmol/L (21.0-32.0); Calcium 8.9 mg/dL (8.5-10.1); Chloride 104 mmol/L (98-107); Estimated GFR 57.15 (mL/min/1.73m2); Glucose 103 mg/dL (74-106); Magnesium 2.2 mg/dL (1.8-2.4); Potassium 3.7 mmol/L (3.5-5.1); Sodium 140 mmol/L (136-145); TSH 7.43 uIU/mL (0.36-3.74); Total Protein 7.7 g/dL (6.4-8.2)
[2020-09-06 06:01] LABS: Bilirubin Negative (Negative); Blood Negative (Negative); Clarity Clear (Clear); Glucose Negative (Negative); Ketones Negative (Negative); Leukocyte Esterase Negative (Negative); Nitrite Negative (Negative); Urobilinogen 0.2 EU/dL (Up TO 0.2)
[2020-09-06 06:11] LABS: FREE T4 0.92 ng/dL (0.76-1.46)
--- NOTE | 2020-09-06 06:55 | DI.VRAD_ITS ---
PROCEDURE INFORMATION: Exam: CT Head Without Contrast Exam date and time: 09/06/2020 4:53 AM Age: 59 years old Clinical indication: Injury or trauma; Blunt trauma (contusions or hematomas); Consciousness not specified; Injury details: Fall 08/31/20 with head injury and right temporal/periorbital bruising. Downs syndrome, ? seizure. TECHNIQUE: Imaging protocol: Computed tomography of the head without contrast. Radiation optimization: All CT scans at this facility use at least one of these dose optimization techniques: automated exposure control; mA and/or kV adjustment per patient size (includes targeted exams where dose is matched to clinical indication); or iterative reconstruction. COMPARISON: No relevant prior studies available. FINDINGS: Brain: There is a remote left gangliocapsular lacunar infarct. The bilateral basal ganglia calcifications. There is no evidence of acute intracranial hemorrhage or mass effect on the ventricular system. There are no extra-axial fluid collections or midline shift. The posterior fossa appears unremarkable. Cerebral ventricles: There are prominent sulci and mild ventriculomegaly. Bones/joints: No acute fracture. Paranasal sinuses: There are no air-fluid levels. Mastoid air cells: The visualized mastoid air cells are well aerated. Soft tissues: Unremarkable. IMPRESSION: 1. Involutional changes of the brain. 2. Remote lacunar infarct of the left gangliocapsular region. 3. No acute intracranial abnormality. PROCEDURE INFORMATION: Exam: CT Cervical Spine Without Contrast Exam date and time: 09/06/2020 4:53 AM Age: 59 years old Clinical indication: Injury or trauma; Blunt trauma (contusions or hematomas); Consciousness not specified; Injury details: Fall 08/31/20 with head injury and right temporal/periorbital bruising. Downs syndrome, ? seizure. TECHNIQUE: Imaging protocol: Computed tomography images of the cervical spine without contrast. Radiation optimization: All CT scans at this facility use at least one of these dose optimization techniques: automated exposure control; mA and/or kV adjustment per patient size (includes targeted exams where dose is matched to clinical indication); or iterative reconstruction. COMPARISON: No relevant prior studies available. FINDINGS: Bones/joints: No acute fracture. There is normal alignment. There is straightening of the normal cervical lordosis. There are anterior and lateral osteophytes. Discs/Spinal canal/Neural foramina: No significant disc protrusion. No severe spinal canal stenosis. No significant neural foraminal narrowing. There is degenerative disc disease at multiple levels, most prominent at C5-C6, C6-C7 and C7-T1. Lungs: Lung apices are normal. Soft tissues: There are no paraspinal fluid collections or hematoma. IMPRESSION: 1. No evidence of acute fracture or acute traumatic subluxation. 2. Multilevel degenerative disc disease and anterior osteophytes. Dictated and Authenticated by: Wilbur Greene MD. Ordering:JOSHUA Knowles MD
[2020-09-06] MEDS: levETIRAcetam 1,000 MG in Normal Saline 100 ML 400 MG IVPB (07:26)
[2020-09-06 08:20] LABS: Source Nasal/Nares
[2020-09-06] MEDS: Enoxaparin 40 MG/0.4 ML SYR SC (09:46)
[2020-09-06 14:56] LABS: COVID-19 PCR Negative (Negative)
--- NOTE | 2020-09-06 16:52 | HPE_ITS ---
Date of service: 09/06/20 Time of Service: 08:15 Assessment and Plan Assessment and plan (1) New onset seizure: Status: Acute Assessment and plan: No bleed or acute stroke on CT head w/o contrast. CT head with contrast schedule for tomorrow. No MRI available until Tuesday. Neurology consult; will see on Tuesday. Cont Keppra 500mg po BID; change to IV if doesn't arouse enough to take medications. (2) Old lacunar stroke without late effect: Status: Acute Assessment and plan: See the above. History of Present Illness History of Present Illness Chief Complaint: Seizure-like activity Narrative: This is a 59 yo female with Down syndrome. She presented to the ED after her sister witnessed the patient appearing rigid in all extremities along with being unresponsive. This occurred at appx 0300 on the AM of admission. The sister is the patients caregiver and was sleeping in a recliner next to the patients bed. The patient had been getting up in the night and wandering, which was not typical behavior. This was why the sister was sleeping in the recliner. The patient had been livingin her own apt attached to the sister's home, but during cov she moved into the basement family room to provide more interaction. A few days prior to this admission the sister heard the patient call out and she was found on the ground with a bleeding abrasion at the R periorbital area and a developing swelling at the R brow. She was helped up and then stated she felt fine and had no issues that were noted until the episode that brought her to the ED. After the seizure-like activity she was somnolent and only aroused intermittently and briefly in the ED.Her CT head showed no acute findings but an old lacunar infarct was present. Lab findings were unremarkable. Of note, the patients sister had recognized changes in the patients gate over the last several months; becoming more wide base. She also related that the patients speech, which had typically been fluent and intelligible, was becoming more garbled. Also noted was more forgetfulness. An outpt appt with Dr. oHu had been arranged. Review of Systems Unobtainable due to mental status [facility] Medical History Abnormal gait Anxiety Aortic stenosis Celiac disease Down syndrome Hypothyroidism Memory impairment Osteoporosis Raynauds phenomenon Urinary retention with incomplete bladder emptying Ventral hernia Vitamin D deficiency Surgical History S/P TKR (total knee replacement) Social History Smoking/Tobacco Use Status: Former Tobacco Use Smoking risk assessment performed?: Yes Alcohol Intake: never Drug use: Never Substance use type: does not use Do you feel safe at home: Yes Do you feel safe in your relationship?: Yes Meds Home Medications and Allergies Allergies Allergy/AdvReac Type Severity Reaction Status Date / Time dexamethasone Allergy Unknown Unverified 09/06/20 04:50 epinephrine Allergy Unknown Unverified 09/06/20 04:50 lidocaine Allergy Unknown Unverified 09/06/20 04:50 levothyroxine AdvReac alopecia Verified 09/06/20 04:50 no generic Synthroid Home Medications Medication Instructions Recorded Confirmed Type polyethylene glycol 3350 17 gram 17 gm PO DAILY #30 each 04/06/18 09/06/20 Rx oral powder packet sertraline 25 mg tablet 25 mg PO DAILY 02/12/20 09/06/20 History alendronate 70 mg tablet 70 mg PO QWEEK 08/12/20 09/06/20 History amoxicillin 500 mg capsule 2,000 mg PO .prior to dental cap 08/12/20 09/06/20 History cholecalciferol (vitamin D3) 25 50 mcg PO DAILY cap 08/12/20 09/06/20 History mcg (1,000 unit) capsule levothyroxine 100 mcg tablet 100 mcg PO DAILY 08/12/20 09/06/20 History mecobalamin (vitamin B12) 1,000 1,000 mcg PO DAILY 08/12/20 09/06/20 History mcg chewable tablet Exam Const Nutritional Appearance: overweight Orientation: other (somnolent) [facility] Head images: 1. bruising Neck Neck: supple and no JVD Resp Effort & Inspection: normal respiratory effort Auscultation: clear to auscultation bilaterally Cardio Rate: regular rate Rhythm: regular rhythm Heart Sounds: S1 normal and S2 normal GI Inspection: non-distended Palpation: soft Skin Full body images: 1. abrasion Neuro General: moves all extremities (spontaneously) and other (somnolent) Extrem General: no pedal edema Results Labs Result diagrams: 09/06/20 05:00 09/06/20 05:00 Labs: Laboratory Results - last 24 hr 09/06/20 09/06/20 09/06/20 05:00 05:00 05:00 WBC 5.77 RBC 4.64 Hgb 15.0 Hct 45.5 MCV 98.1 H MCH 32.3 MCHC 33.0 RDW 13.5 Plt Count 241 MPV 11.0 Immature Gran % 0.0 Neutrophils % 41.4 Lymphocytes % 46.1 Monocytes % 10.1 Eosinophils % 1.2 Basophils % 1.2 Nucleated RBC % 0 Absolute Neutrophils 2.39 Absolute Lymphocytes 2.66 Absolute Monocytes 0.58 Absolute Eosinophils 0.07 Absolute Basophils 0.07 Sodium 140 Potassium 3.7 Chloride 104 Carbon Dioxide 29.8 Anion Gap 6.2 BUN 15 Creatinine 1.0 Estimated GFR/1.73 m2 57.15 Glucose 103 Calcium 8.9 Magnesium 2.2 Total Bilirubin 0.3 AST 26 ALT 32 Alkaline Phosphatase 136 H Total Protein 7.7 Albumin 3.3 L TSH 7.43 H Free T4 0.92 Urine Color Urine Clarity Urine pH Ur Specific [place] Urine Protein Urine Ketones Urine Blood Urine Nitrite Urine Bilirubin Urine Urobilinogen Ur Leukocyte Esterase Urine Glucose COVID-19 Source SARS-CoV-2 (PCR) 09/06/20 09/06/20 05:53 07:55 WBC RBC Hgb Hct MCV MCH MCHC RDW Plt Count MPV Immature Gran % Neutrophils % Lymphocytes % Monocytes % Eosinophils % Basophils % Nucleated RBC % Absolute Neutrophils Absolute Lymphocytes Absolute Monocytes Absolute Eosinophils Absolute Basophils Sodium Potassium Chloride Carbon Dioxide Anion Gap BUN Creatinine Estimated GFR/1.73 m2 Glucose Calcium Magnesium Total Bilirubin AST ALT Alkaline Phosphatase Total Protein Albumin TSH Free T4 Urine Color Yellow Urine Clarity Clear Urine pH 7.0 Ur Specific [place] 1.020 Urine Protein Negative Urine Ketones Negative Urine Blood Negative Urine Nitrite Negative Urine Bilirubin Negative Urine Urobilinogen 0.2 Ur Leukocyte Esterase Negative Urine Glucose Negative COVID-19 Source Nasal/nares SARS-CoV-2 (PCR) Negative Last Vital Signs Temp 36.7 C 09/06/20 15:36 Pulse 60 09/06/20 15:36 Resp 17 09/06/20 15:36 BP 105/69 09/06/20 15:36 Pulse Ox 99 09/06/20 15:36 COVID-19 Screening Have you, or household traveled for leisure in last 14 days?: No Had IN PERSON contact w/suspected or confirmed C-19 person: No
[2020-09-06] MEDS: levETIRAcetam 250 MG TAB 500 MG PO (19:51)
[2020-09-07 00:36] VITALS: BP 102/69; PULSE 67; RESP 18; TEMP 35.3; O2SAT 96
[2020-09-07] MEDS: Levothyroxine 100 MCG TAB PO (06:30)
[2020-09-07 07:53] VITALS: BP 101/66; PULSE 59; RESP 17; TEMP 36.6; O2SAT 98
--- NOTE | 2020-09-07 08:00 | DI.CT_ITS ---
EXAM: CT HEAD WO CLINICAL HISTORY: new onset seizure. TECHNIQUE: Imaging Protocol: Axial computed tomography images with coronal and sagittal reformatted images were created and reviewed COMPARISON: CT CT HEAD CERVICAL SPINE WO from 09/06/2020 FINDINGS: The examination is limited due to patient motion artifact. Ventricles and Extra axial spaces: Normal in size and morphology for the patient's age. Hemorrhage: None. Cerebral parenchyma: There are areas of decreased attenuation in the white matter consistent with tolu rovascular ischemic change. There is an old left basal gangliar lacunar infarct. No acute territori al infarct is present. Bilateral physiologic basal gangliar calcifications are present. Midline shift: None. Brainstem/Cerebellum: Normal. Calvarium: Normal. Visualized Paranasal sinuses/Mastoids: Clear. Soft Tissues: Unremarkable. IMPRESSION: No acute intracranial process. RADIATION DOSE DELIVERED: 622.04mGy.cm Total DLP DATA REPOSITORY: All CT scans at this facility are submitted to the National Radiology Data Registry (NRDR) Dose Index Registry (DIR) with the [employer] (ACR). RADIATION OPTIMIZATION: All CT scans at this facility use at least one of these dose optimization te chniques: automated exposure control; mA and/or kV adjustment per patient size (includes targeted exa ms where dose is matched to clinical indication); or iterative reconstruction.
[2020-09-07] MEDS: Sertraline 25 MG TAB PO (08:31)
[2020-09-07] MEDS: Polyethylene Glycol 3350 17 GM PACKET PO (08:31)
[2020-09-07] MEDS: Cholecalciferol (Vitamin D3) 1,000 UNIT TAB 2000 UNITS PO (08:31)
[2020-09-07] MEDS: Normal Saline Flush 10 ML SYR IVP (08:31)
[2020-09-07] MEDS: levETIRAcetam 250 MG TAB 500 MG PO ×2 (08:31→19:19)
--- NOTE | 2020-09-07 09:19 | DI.VRAD_ITS ---
PROCEDURE INFORMATION: Exam: CT Head Without Contrast Exam date and time: 09/07/2020 8:26 AM Age: 59 years old Clinical indication: Other: New onset seizure TECHNIQUE: Imaging protocol: Computed tomography of the head without contrast. Radiation optimization: All CT scans at this facility use at least one of these dose optimization techniques: automated exposure control; mA and/or kV adjustment per patient size (includes targeted exams where dose is matched to clinical indication); or iterative reconstruction. COMPARISON: CT HEAD CERVICAL SPINE WO 09/06/2020 5:20 AM FINDINGS: Brain: As on the recent prior, there are moderate diffuse involutional changes of brain with limited white matter hypodensity suggestive of small vessel disease. Bilateral physiologic basal ganglia calcifications. No acute hemorrhage or acute territorial infarct. Old lacune versus dilated perivascular space on the left. Cerebral ventricles: No ventriculomegaly. Bones/joints: Unremarkable. No acute fracture. Paranasal sinuses: Visualized sinuses are unremarkable. No fluid levels. Mastoid air cells: Visualized mastoid air cells are well aerated. Soft tissues: Unremarkable. IMPRESSION: No acute abnormality and no significant change from the quite recent prior. Dictated and Authenticated by: Neal Foy MD. Ordering:TITA De Jesus MD
[2020-09-07] MEDS: Enoxaparin 40 MG/0.4 ML SYR SC (10:30)
--- NOTE | 2020-09-07 11:04 | PT.INIE ---
Date of service: 09/07/20 Time of Service: 11:04 PT Notes Visit Reasons: NEW ONSET SEIZURE Physical Therapy Inpatient Initial Evaluation Date: 09/07/2020 Referring Doctor: Neal English MD PT Orders: PT CONSULT: Eval/Treat Precautions: Fall. Standard. Activity as tolerated. Patient Profile/Admitting Diagnosis: Suzy is a 59-year-old female with Down syndrome and an old lacunar stroke with late effect who presented to the ED on 09/06/2020 due to unresponsive event at home with an associated fall a few days ago with presumed head strike against pool table (per chart). Patient is diagnosed with new onset seizure. PMHX: Medical History Abnormal gait Anxiety Aortic stenosis Celiac disease Down syndrome Hypothyroidism Memory impairment Osteoporosis Raynauds phenomenon Urinary retention with incomplete bladder emptying Ventral hernia Vitamin D deficiency Surgical History S/P TKR (total knee replacement) Social History/Home Situation: Lives with sister and sister's family in a private home with one-step to enter with rails. Independent with all indoor ambulation without an assistive device. Supervision for outdoors. Equipment Owned/DME: Single-point cane Subjective: Sister Debbie facilitated completion of initial evaluation today as patient seemed a bit shy, wary of new faces, and not completely willing to respond to questions. Objective: General Observation: Seated on bedside chair. Sister sitting on chair beside patient's chair. Contusion on R side of face from recent fall beginning to lighten. Not able to demonstrate full eye contact during conversation. Old R TKA scar faded out. Mental Status: Alert and oriented as to person, place, time, and purpose. Not able to demonstrate full eye contact during conversation. Requires additional time for processing of instructions. Pain: 0/10 ROM: Right Upper Extremity: Grossly WFL Left Upper Extremity: Grossly WFL Right Lower Extremity: Grossly WFL Left Lower Extremity: Grossly WFL Strength: Right Upper Extremity: Grossly 4/5 Left Upper Extremity: Grossly 4/5 Right Lower Extremity: Grossly 4/5 Left Lower Extremity: Grossly 4/5 Bed Mobility/Transfers: Rolling independent Supine to sit independent Sit to supine independent Sit to stand independent Stand to sit independent Bed to chair independent Chair to bed independent Gait: Distance of 460 feet requiring supervision assist. R foot everted more than the L. Per sister, patient demonstrates baseline level mobility. Balance: Static Sitting: Normal Dynamic Sitting: Normal Static Standing: Fair Dynamic Standing: Fair Special Tests: Mobility Limitations Standardized Measure [facility] AM-PAC 6 clicks Basic Mobility Inpatient Short Form: Raw Score: 24 CMS Score: 0% deficit Informed Consent/Education: Patient and patient's sister were instructed in purpose of PT consult. Assessment: Suzy demonstrates a baseline functional mobility level requiring no assistive device and supervision assist at this time due to being in unfamiliar environment. Sister Debbie was advised about using neon-colored tapes for visual cues on steps to address decrease in depth perception. Patient presents with clinical signs and symptoms consistent with current/admitting diagnoses that have resulted to mobility limitations, gait instability, generalized weakness, and impairment of motor control as demonstrated by the following impairment level findings: 1. Baseline strength to B UE/LE major muscle groups Impairments are contributing to the following functional limitations: 1. Continued need for supervision at home for overall safety per baseline level Patient is assessed [place] a 26562 moderate complexity based on the following: History: 59-year-old male with past medical history as indicated above Examination: Demonstrable impairment in strength, balance, and mobility level with underlying impairments and functional limitations as exhibited above as well as deficit score of 0% utilizing the [facility] Mobility Inpatient Short Form Presentation: Stable Decision Makin moderate complexity Goals: N/A. PT evaluation only. Plan of Care/Treatment Plan: N/A. PT evaluation only. DISCHARGE RECOMMENDATIONS: Home when medically cleared by hospitalist. No equipment needs at this time. May walk 1-2 times a day through the big hallway loop up to 400 feet with nursing staff and sister Debbie. TREATMENT CODE/TIME: 27296 x 29 minutes beginning at 11:04 AM. Thank you for the opportunity to participate in the care of this patient. Kaci Potter PT, DPT, CLT [facility] [place], [place]
--- NOTE | 2020-09-07 13:18 | W.PM.PROGNOT ---
Date of Service Date of service: 09/07/20 Time of Service: 13:18 Assessment and Plan Assessment and plan (1) Old lacunar stroke without late effect: Status: Acute Assessment and plan: CT head w/o acute findings. Not on a statin. (2) New onset seizure: Status: Acute Assessment and plan: No seizure-like activity noted since admission. EEG and neurology evaluation tomorrow. Cont Keppra 500mg po BID; tolerating well. Subjective Subjective Patient reports: no new complaints, tolerating a regular diet and afebrile; denies shortness of breath Interval history since last seen: No seizure-like activity noted Exam Const General: cooperative and no acute distress Nutritional Appearance: overweight Orientation: alert and oriented to person Eyes Periorbital: periorbital findings abnormal right periorbital ecchymosis Neck Neck: full ROM Resp Effort & Inspection: normal respiratory effort Auscultation: clear to auscultation bilaterally Cardio Rate: regular rate Rhythm: regular rhythm Heart Sounds: S1 normal and S2 normal Extrem General: no pedal edema and no calf tenderness Objective Last Vital Signs Temp 36.6 C 09/07/20 07:53 Pulse 59 L 09/07/20 07:53 Resp 17 09/07/20 07:53 BP 101/66 09/07/20 07:53 Pulse Ox 98 09/07/20 07:53 Laboratory Results - last 24 hr 09/06/20 07:55 SARS-CoV-2 (PCR) Negative
[2020-09-07 17:50] VITALS: BP 96/46; PULSE 65; RESP 15; TEMP 36; O2SAT 100
[2020-09-08] MEDS: Levothyroxine 100 MCG TAB PO (07:00)
[2020-09-08 07:24] VITALS: BP 106/62; PULSE 60; RESP 16; TEMP 36.6; O2SAT 96
--- NOTE | 2020-09-08 08:03 | INITIAL_ITS ---
- If Service Date Differs Date of service: 09/08/20 Time of Service: 08:03 Care Management Initial Assess REASON FOR HOSPITALIZATION:: New onset seizure PAST MEDICAL HISTORY/PAST SURGICAL HISTORY:: Abnormal gait. Anxiety. Aortic stenosis. Celiac disease. Down syndrome. Hypothyroidism. Memory impairment. Osteoporosis. Raynauds phenomenon. Urinary retention with incomplete bladder emptying. Ventral hernia. Vitamin D deficiency. S/P TKR (total knee replacement) PREVIOUS FUNCTIONAL STATUS/SOCIAL/FAMILY SUPPORTS:: The sister is the patients caregiver and was sleeping in a recliner next to the patients bed. The patient had been getting up in the night and wandering, which was not typical behavior. This was why the sister was sleeping in the recliner. The patient had been livingin her own apt attached to the sister's home, but during cov she moved into the basement family room to provide more interaction. A few days prior to this admission the sister heard the patient call out and she was found on the ground with a bleeding abrasion at the R periorbital area and a developing swelling at the R brow. She was helped up and then stated she felt fine and had no issues that were noted until the episode that brought her to the ED. After the seizure-like activity she was somnolent and only aroused intermittently and briefly in the ED.Her CT head showed no acute findings but an old lacunar infarct was present. Lab findings were unremarkable. Of note, the patients sister had recognized changes in the patients gate over the last several months; becoming more wide base. She also related that the patients speech, which had typically been fluent and intelligible, was becoming more garbled. Also noted was more forgetfulness. An outpt appt with Dr. Hou had been arranged. CURRENT FUNCTIONAL STATUS:: Kalani is pleasant in interaction, her sister is consistently at her bedside. ADVANCE DIRECTIVES:: SisterDebbie Has patient been provided with info about the portal/API?: No Did the patient sign up for the portal?: No CODE STATUS:: Full Code INSURANCE COVERAGE / FINANCIAL ISSUES:: Medicaid. Medicare CURRENT HOME/COMMUNITY SERVICES/EQUIPMENT:: Sister as finance insurance manager-independent with eating; requires assistance with all other ADLs. PRIMARY CARE PHYSICIAN:: Marisol Trotter POTENTIAL DISCHARGE NEEDS:: Follow up appointments. PATIENT/FAMILY EDUCATION NEEDS:: Review discharge instructions, discuss Ask Me Three. ANTICIPATED BARRIERS TO DISCHARGE:: None identified at this time. TRANSPORTATION:: Via private vehicle with her sister. PLAN:: Kalani will return home, where she resides with her sister. She will follow up with her PCP and plan of care as prescribed. She will transport via private vehicle with her sister, Debbie.
[2020-09-08] MEDS: levETIRAcetam 250 MG TAB 500 MG PO (08:52)
[2020-09-08] MEDS: Sertraline 25 MG TAB PO (08:52)
[2020-09-08] MEDS: Cholecalciferol (Vitamin D3) 1,000 UNIT TAB 2000 UNITS PO (08:52)
[2020-09-08] MEDS: Polyethylene Glycol 3350 17 GM PACKET PO (08:52)
--- NOTE | 2020-09-08 09:45 | CMDISCH_ITS ---
- If Service Date Differs Date of service: 09/08/20 Time of Service: 16:45 LACE Index Scoring Tool - Questions: Length of Stay (in days): 2 Acuity (Admit via E.D.?): Yes E.D. Visits: 1 - Answers: Total Score: 6 Risk of Readmission: Low Risk Care Management Discharge Reason for Hospitalization: New onset seizure Discharge Plan: Kalani will return home, where she resides with her sister. She will follow up with her PCP and plan of care as prescribed. She will transport via private vehicle with her sister, Debbie. Patient/Family Education Needs: Review discharge instructions, discuss Ask Me Three. Services Needed at Discharge: Homemaking Services (Sister as middle school combination teacher caregiver )
--- NOTE | 2020-09-08 15:43 | PDOC.EEG_ITS ---
Neurology EEG EEG: [facility] Department of Neurology INPATIENT EEG REPORT Date of Recordin09/08/20 Interpreting Physician: Dr. Linnette Hou Reason for study: Ms. Larry is a 59 year-old woman with Down syndrome who was witnessed to have a generalized tonic seizure. Current Medications: Current Medications Acetaminophen (Acetaminophen 325 Mg Tab) 650 mg PO Q4H PRN PRN Cholecalciferol (Cholecalciferol (Vitamin D3) 1,000 Unit Tab) 2,000 units PO DAILY [facility] Last Admin: 09/08/20 08:52 Dose: 2,000 units Documented by: Dimethicone/Zinc Oxide (Beatrice Protect Cream 142 Gm Tube) 0 gm TP PRN PRN Enoxaparin Sodium (Enoxaparin 40 Mg/0.4 Ml Syr) 40 mg SC Q24H [facility] Last Admin: 09/08/20 10:20 Dose: Not Given Documented by: IV Miscellaneous Supplies (Iv Access) 1 each IV DIRECTED [facility] Levetiracetam (Levetiracetam 250 Mg Tab) 500 mg PO BID [facility] Last Admin: 09/08/20 08:52 Dose: 500 mg Documented by: Levothyroxine Sodium (Levothyroxine 100 Mcg Tab) 100 mcg PO DAILY@0600 [facility] Last Admin: 09/08/20 07:00 Dose: 100 mcg Documented by: Magnesium Hydroxide (Milk Of Magnesia 30 Ml Cup) 30 ml PO DAILY PRN PRN Polyethylene Glycol (Polyethylene Glycol 3350 17 Gm Packet) 17 gm PO DAILY [facility] Last Admin: 09/08/20 08:52 Dose: 17 gm Documented by: Sertraline HCl (Sertraline 25 Mg Tab) 25 mg PO DAILY [facility] Last Admin: 09/08/20 08:52 Dose: 25 mg Documented by: Sodium Chloride (Normal Saline Flush 10 Ml Syr) 0 ml IVP PRN PRN Last Admin: 09/07/20 08:31 Dose: 10 ml Documented by: METHODS: A 21 channel digitized electroencephalogram was performed in the [facility] Med/Surg Floor or ICU. The 10/20 international system of electrode placement was used and bipolar and referential electrode montages were recorded. In addition to EEG the patient was monitored for EKG and lateral/vertical eye movements. Activation procedures of photic stimulation and hyperventilation were performed if applicable. Video was used during activation procedures and during events where applicable. The duration of the recording was 30 minutes. DESCRIPTION OF EEG: The patient was noted to be awake, drowsy, and asleep during the recording. During maximal wakefulness a 5-6-Hz posterior background rhythm was present which was poorly-modulated, symmetrical, reactive to eye opening, and of moderate voltage. With eye opening the background activity changed to a low voltage mixture of alpha, beta, and occasional theta range frequencies. Faster frequencies were present in the bilateral anterior head regions. There was a n ormal anterior-posterior voltage gradient. During drowsiness, there was attenuation of the posterior dominant background rhythm and vertex waves. Stage II sleep was present with symmetrical sleep spindles, K-complexes, and vertex waves. During wakefulness, there was intermittent generalized delta slowing, at times appearing consistent with triphasic waves. There were various moderate-amplitude focal sharp-waves at Fp2, F4, C3, F3, and F7; none of which were clearly epileptiform. Additionally, during sleep, there were moderate-amplitude generalized sharp waves also of unclear significance. Activating Procedures: Photic stimulation was performed which produced a symmetrical posterior driving response at various flash frequencies. Hyperventilation was not performed. EKG: EKG revealed normal sinus rhythm. INTERPRETATION: This EEG is abnormal due to: #1. Moderate generalized slowing with slowing of the posterior dominant rhythm. #2. Focal and generalized sharp-waves of unclear significance. PRIOR EEG: none CLINICAL CORRELATION: The background slowing is suggestive of a moderate diffuse cerebral encephalopathy of broad differential including toxic-metabolic etiology. No definite focal regions of cerebral dysfunction or epileptiform activity was present. Clinical correlation is advised. Linnette Hou MD
[2020-09-08 15:45] VITALS: BP 95/63; PULSE 61; RESP 16; TEMP 36.2; O2SAT 97
--- NOTE | 2020-09-08 16:06 | W.NEUROCONSU ---
Date of service: 09/08/20 Time of Service: 16:06 Assessment and Plan Assessment and plan (1) New onset seizure: Status: Acute (2) Down syndrome: Status: Acute (3) Dementia: Status: Chronic Assessment and plan: Ms. Larry is a 59 year-old, right-handed woman with Down Syndrome who has had a physical and cognitive decline over the last several years, but particularly in the last 2-3 years. 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 Along with this, epilepsy is quite common. She had a very clearly witnessed seizure with questionable other seizures at home - namely drop attacks. I agree with continuation of levetiracetam 500mg BID for seizure prevention. This may be contributing to her fatigue and hopefully should get better in the next 1-2 weeks which I discussed with sister along with other common ADRs. We discussed that seizures can be difficult to manage in this group. We discussed seizure safety and what to do in the event of another seizure. In regards to the CT findings - this is NOT an old infarct. 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 This is congenital, of no consequence, and needs no further testing, etc. Otherwise, given increased agitation/anxiety along with poor sleep, would consider switching sertraline to mirtazepine. I will defer to PCP. Finally, given increase in difficulty with transportation and above diagnoses, would consider outpatient referral to Palliative Care. She will follow-up in the neurology clinic in 4-6 weeks. History of Present Illness History of Present Illness Chief Complaint: seizure Narrative: Handedness: right. HPI: Ms. Larry is a 59 year-old woman with Down syndrome, hypothroidism, Celiac, Raynauds, osteoporosis, aortic stenosis, and vitamin D deficiency. Kalani's sister Debbie was available at bedside. Ms. Larry was admitted on 09/06/20 after a witnessed seizure around ~3am on the day of admission. About 1 week ago, Ms. Larry was found down in her room around 5am with bruising and lacerations to her right face. She had been noted to have increased falling in the last 1 year as well as night time wandering. For that reason, Debbie began sleeping in a recliner next to Kalani at night. She has observed her to get out of bed for no apparent reason many times during the night. On the day of admission, she again woke up and tried to get out of bed. Debbie was able to calm her and get her to lay back down. Approximately 2 minutes later, Kalani made a high-pitched keening noise and then was noted to have whole body rigidity lasting ~1 minute. After, she was quite lethargic with congested/wet breathing. EMS was called and she was brought to [facility]. In the ER, she had a negative laboratory work-up. She underwent CT head x 2. I reviewed both images. There were no acute findings. She had moderate generalized atrophy. She has an enlarged Virchow-Rodolfo space in the left basal ganglia. She was started on levetiracetam 500mg BID. Per Debbie, Kalani has made good recovery, but remains more tired than usual. Otherwise, Debbie has noted a several year global physical and cognitive decline including memory, ability to write, balance, dysarthria, and inability to perform ADLs, to name a few; worse in the last 2-3 years. In the last 1 year, she has been having intermittent falls. Kalani has lived with Debbie for ~20 years. 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 Kalani spends most of her time watching TV - she watches [employer] on the [employer] daily for most of the day - Kalani could not recall the name of her favorite TV show. 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 Debbie has also noted various spells in the last 1 year. At times, she will suddenly lose tone - such as a head drop. Unclear if drop attackes have contributed to her falls. Kalani has also been witnessed to have odd behavior such as swatting at a bug when none is there - but these aren't clearly seizures as Debbie can get her attention and then stops this. Kalani tends to stare off quite often, but this is not obvioiusly associated with behavioral arrest and complete inattention. Kalani is not as bubbly and happy as she has been in the past. Per Debbie, Kalani has become more tense overtime. She is on sertraline, but unclear if this has helped with mood or not. Kalani is unable to tolerate an MRI brain. She had an EEG this afternoon which showed moderate generalized slowing and non-specific sharp-waves. Consults Requesting physician: Neal English Review of Systems All systems reviewed & are unremarkable except as noted in HPI and below PFSH Medical History Abnormal gait Anxiety Aortic stenosis Celiac disease Down syndrome Hypothyroidism Memory impairment Osteoporosis Raynauds phenomenon Urinary retention with incomplete bladder emptying Ventral hernia Vitamin D deficiency Surgical History S/P TKR (total knee replacement) Social History Smoking/Tobacco Use Status: Former Tobacco Use Smoking risk assessment performed?: Yes Alcohol Intake: never Drug use: Never Substance use type: does not use Do you feel safe at home: Yes Do you feel safe in your relationship?: Yes Visit Medication and Allergies Active Medications Generic Name Dose Route Start Last Admin Trade Name Freq PRN Reason Stop Dose Admin Acetaminophen 650 mg 09/06/20 09:08 Acetaminophen 325 Mg Tab PO Q4H PRN PRN Cholecalciferol 2,000 units 09/07/20 08:30 09/08/20 08:52 Cholecalciferol (Vitamin D3) 1,000 Unit Tab PO 2,000 units DAILY MAGGIE Administration Dimethicone/Zinc Oxide 0 gm 09/06/20 09:08 Beatrice Protect Cream 142 Gm Tube TP PRN PRN Enoxaparin Sodium 40 mg 09/06/20 10:00 09/08/20 10:20 Enoxaparin 40 Mg/0.4 Ml Syr SC Not Given Q24H MAGGIE IV Miscellaneous Supplies 1 each 09/06/20 05:00 Iv Access IV DIRECTED MAGGIE Levetiracetam 500 mg 09/06/20 20:00 09/08/20 08:52 Levetiracetam 250 Mg Tab PO 500 mg BID MAGGIE Administration Levothyroxine Sodium 100 mcg 09/06/20 06:00 09/08/20 07:00 Levothyroxine 100 Mcg Tab PO 100 mcg DAILY@0600 MAGGIE Administration Magnesium Hydroxide 30 ml 09/06/20 09:08 Milk Of Magnesia 30 Ml Cup PO DAILY PRN PRN Polyethylene Glycol 17 gm 09/07/20 08:30 09/08/20 08:52 Polyethylene Glycol 3350 17 Gm Packet PO 17 gm DAILY MAGIGE Administration Sertraline HCl 25 mg 09/07/20 08:30 09/08/20 08:52 Sertraline 25 Mg Tab PO 25 mg DAILY MAGGIE Administration Sodium Chloride 0 ml 09/06/20 04:49 09/07/20 08:31 Normal Saline Flush 10 Ml Syr IVP 10 ml PRN PRN Administration Allergies dexamethasone Allergy (Unknown, Unverified 09/06/20 04:50) epinephrine Allergy (Unknown, Unverified 09/06/20 04:50) lidocaine Allergy (Unknown, Unverified 09/06/20 04:50) levothyroxine Adverse Reaction (Verified 09/06/20 04:50) alopecia no generic Synthroid Exam Narrative Exam Narrative: Physical Exam: Constitutional: Patient of apparent stated age, well nourished, well developed, no acute distress; Down syndrome facies Neck: Supple, no meningismus CV: RRR, S1, S2, no murmur Resp: CTAB Abd: Soft, nontender, nondistended, +BS Neuro: MS/Language/Speech: awake though maybe a bit lethargic vs psychomotor retardation/bradykinetic, oriented to self only, reduced fluency; able to follow simple commands only; mild dysarthria; could not tell me her age; knew her birthday was on the but couldn't recall the month; knew she lived with her sister but not what town; was unable to write her name down for me; intead wrote a letter 'i' and then later a 'd; also, I made a line for her to write her name and she wrote both letters below it.... CN: PERRL, EOMI, visual clements appear full though hard to tell, trigeminal sensation intact, no facial asymmetry, hearing intact Motor: Normal bulk and tone. No cogwheel rigidity. Diffuse bradykinesia. FMM reduced bilaterally, no pronator drift. 5/5 strength in bilateral upper extremities. Was able to move LE on command but would not cooperate with formal strength testing of the legs. Sensation: Intact to PP throughout Reflexes: hyporeflexic throughout, downgoing toes Coordination: no ataxia Gait: not performed Results Last Vital Signs Temp 36.2 C L 09/08/20 15:45 Pulse 61 09/08/20 15:45 Resp 16 09/08/20 15:45 BP 95/63 L 09/08/20 15:45 Pulse Ox 97 09/08/20 15:45 Labs Result diagrams: 09/06/20 05:00 09/06/20 05:00
--- NOTE | 2020-09-08 17:55 | W.PM.DS.N ---
Date of service: 09/08/20 Time of Service: 17:55 DS: Diagnosis Discharge Diagnosis (1) New onset seizure: Status: Acute (2) Down syndrome: Status: Acute (3) Dementia: Status: Chronic Discharge Plan Disposition Patient Disposition: HOME Condition: Improving Discharge Details Reason For Visit: NEW ONSET SEIZURE Admit Date/Time: 09/06/20 07:42 Admit Provider: Neal English Attending Provider: Neal English Primary Care Provider: Marisol Trotter [place] Hospital Course Hospital Course: This is a 59 yo female with Down syndrome. She presented to the ED after her sister witnessed the patient appearing rigid in all extremities along with being unresponsive. This occurred at appx 0300 on the AM of admission. The sister is the patients caregiver and was sleeping in a recliner next to the patients bed. The patient had been getting up in the night and wandering, which was not typical behavior. This was why the sister was sleeping in the recliner. The patient had been livingin her own apt attached to the sister's home, but during cov she moved into the basement family room to provide more interaction. A few days prior to this admission the sister heard the patient call out and she was found on the ground with a bleeding abrasion at the R periorbital area and a developing swelling at the R brow. She was helped up and then stated she felt fine and had no issues that were noted until the episode that brought her to the ED. After the seizure-like activity she was somnolent and only aroused intermittently and briefly in the ED.Her CT head showed no acute findings but an old lacunar infarct was present though neurology stated this was not an old infarct but a benign CSF space / Virchow-Rodolfo space that was slightly enlarged. Lab findings were unremarkable. Of note, the patients sister had recognized changes in the patients gate over the last several months; becoming more wide base. She also related that the patients speech, which had typically been fluent and intelligible, was becoming more garbled. Also noted was more forgetfulness. An outpt appt with Dr. Hou had been arranged. Dr Hou evaluated her EEG that was obtained. EEG showed moderate generalized slowing with slowing of the posterior dominant rhythm and focal generalized sharp-waves of unclear significance. This was interpreted as background slowing suggestive of moderate diffuse cerebral encephalopathy of broad differential including toxic-metabolic etiology. No definite focal regions of cerebral dysfunction or epileptiform activity present. The clinical picture did look for likely to be a new onset seizure disorder and Keppra 500mg BID was initiated after a loading dose. No seizure activity noted during this hospitalization. She will f/u as an outpt with Neurology. Follow up with PCP in 1-2 weeks. Home Meds and New Rx's Prescriptions: Continued polyethylene glycol 3350 [Miralax] 17 gram powder in packet 17 gm PO DAILY Qty: 30 RF: 0 levothyroxine [Synthroid] 100 mcg tablet 100 mcg PO DAILY RF: 0 No Action levetiracetam 500 mg tablet 500 mg PO BID Qty: 180 RF: 3 Ensure High Protein Liquid 250 ml PO DAILY AM 14 Days Qty: 2844 RF: 2 sertraline 50 mg tablet 50 mg PO DAILY Qty: 90 RF: 3 Discharge Instructions Instructions: New-Onset Seizure in Adults (ED) Stand Alone Forms: Nursing Discharge Form Referrals: Marisol Trotter MD [Primary Care Provider] - (Please call tomorrow for follow up in 1-2 weeks.) Activity:: Activity as Tolerated Equipment/Supplies:: No Equipment Needed Diet:: As Tolerated Discharge Orders Discharge Orders: Discharge Order (Routine); Ordered 09/08/20 Ordered By: Neal English Discharge Data Discharge Date/Time-TO BE ENTERED AT DEPARTURE: 09/08/20 18:26 DS: Summary Time Spent with Patient providing and/or coordinating discharge services: Greater than 30 minutes Status at Discharge Functional status at discharge: independent ambulation Overall status at discharge: patient is not back to baseline Mental Status: other (Dev delayed secondary to Downs) Speech and Movement: delayed speech Mood: congruent mood and other (Dev delayed secondary to Downs) Affect: normal affect Exam Psych Mental Status: other (Dev delayed secondary to Downs) Speech and Movement: delayed speech Mood: congruent mood and other (Dev delayed secondary to Downs) Affect: normal affect DS: Data Vitals/I&O Vitals and I&O: Vital Signs Temperature 36.2 C L 09/08/20 15:45 Temperature Source Tympanic 09/08/20 15:45 Pulse 61 09/08/20 15:45 Pulse Rhythm Regular 09/08/20 09:00 Respiratory Rate 16 09/08/20 15:45 Respiratory Effort Non-Labored 09/08/20 09:00 Respiratory Depth Normal 09/08/20 09:00 Respiratory Pattern Normal 09/08/20 09:00 Blood Pressure 95/63 L 09/08/20 15:45 Blood Pressure Mean 78 09/06/20 08:20 Pulse Oximetry 97 09/08/20 15:45 Oxygen Delivery Method Room Air 09/08/20 15:45 Oxygen Flow Rate 0 09/08/20 15:45 Pain Level 0 09/08/20 15:45 Intake & Output 09/07/20 09/08/20 09/08/20 23:59 11:59 23:59 Intake Total 365 / 965 480 / 1320 840 / 1320 Balance 365 / 965 480 / 1320 840 / 1320 Intake: IV 5 / 5 Oral 360 / 960 480 / 1320 840 / 1320 Other: Comment Patient's caregiver, Debbie, helps patient to toilet and reports normal urination. Patient does not report any concerns to nurse. voiding with industrial illuminating engineer. no complaints Voiding Methods Toilet [facility] Medical History (Updated 02/17/21 @ 15:03 by Cecy Blackmon MD) Abnormal gait Anxiety Aortic stenosis Cannot walk Celiac disease DNI (do not intubate) DNR (do not resuscitate) Down syndrome Early onset Alzheimer's dementia Encounter for hospice care discussion Lacey catheter in place Gluten intolerance Hallucinations Health care proxy on file sister Mayte House brother Kvng Larry History of smoking Hospice care patient Hypothyroidism Lives with caregiver sister Debbie Dominique since 2000 Memory impairment Osteoporosis Palliative care patient POLST (Physician Orders for Life-Sustaining Treatment) Poor circulation of extremity both feet cyanotic Raynauds phenomenon Seizure disorder new as of August 2020; linked to her Alz Dementia Unintentional weight loss Urinary and fecal incontinence Urinary retention with incomplete bladder emptying UTI (urinary tract infection) Ventral hernia Vitamin D deficiency Surgical History S/P TKR (total knee replacement) Family History (Updated 12/31/20 @ 15:23 by Cecy Blackmon MD) Brother Myocardial infarction Heart disease Sister Diabetes Brother No problems noted. Sister No problems noted. Social History (Updated 12/31/20 @ 15:31 by Cecy Blackmon MD) Smoking/Tobacco Use Status: Former Tobacco Use Tobacco: How many years used: 20 Smoking risk assessment performed?: Yes Alcohol Intake: never Drug use: Never Substance use type: does not use Caregiver/Support person: Yes Household members: family Housing: house Number of Children: 0 Communication Needs: Hard of Hearing and Corrective Lenses Education Level: high school Do you need help understanding health information?: Always current occupation: disabled Pets and animals: Yes Pets and animals: cat(s) Current gender identity: female What is your relationship status?: never How often do you talk on the phone with friends or family?: never How often do you get together with friends or relatives?: three or more times per week Panel score (0-1 are the most socially isolated patients): 1 What type of physical activity do you participate in: bed-bound and sedentary lifestyle Frequency: does not exercise Karen/Roman Catholic: Moravian Special karen needs: No Agree to transfusion: No Seatbelt use: always Working smoke detector in home: Yes Fire extinguisher in home: Yes Do you feel safe at home: Yes Do you feel safe in your relationship?: Yes Additional Social history: I met with Debbie Uriarte (sister and caregiver), Mayte (sister and co-guardian), Kvng (brother and co-guardian) and Debbie's , [place]. Kalani spoke a word or two at a time in answer to a question. No spontaneous speech. She was in a hospital bed on a pressurized mattress in the living room. Debbie said she set her bed up there about 2-3 weeks ago. Kalani recently had a UTI; she is still taking bactrim. She was in SEVERE pain during this time, though she could not locate where her pain was. Her sister thinks her catheter was also malpositioned at the time of her UTI. Her primary HH nurse, Magnolia, repositioned her catheter and she felt much better. Kalani has been hallucinating recently, and reaching up into the air. All her surviving siblings appear to work together well. No tensions noted. Kalani does have a boyfriend, Braxton, with [employer]. She wore an engagement ring for years. Braxton still visits regularly.
== END 2020-09-08 18:26 | disposition home or self-care (01) ==
LOC: ER 07:56 → MS 08:43
PROVIDERS: Admitting Provider Family Medicine; Emergency Provider Emergency Medicine; PCP Family Medicine; Visit Provider Family Medicine
DX: R56.9 Unspecified convulsions (principal); Q90.9 Down syndrome, unspecified; G30.9 Alzheimer's disease, unspecified; F02.80 Dementia in other diseases classified elsewhere, unspecified severity, without behavioral disturbance, psychotic disturbance, mood disturbance, and anxiety; E03.9 Hypothyroidism, unspecified; K90.0 Celiac disease; I73.00 Raynaud's syndrome without gangrene; M81.0 Age-related osteoporosis without current pathological fracture; E55.9 Vitamin D deficiency, unspecified; I35.0 Nonrheumatic aortic (valve) stenosis; Z86.73 Personal history of transient ischemic attack (TIA), and cerebral infarction without residual deficits; R26.9 Unspecified abnormalities of gait and mobility; R33.9 Retention of urine, unspecified
CPT/HCPCS: 36415; 80053; 87635; 95819; 96365; 97162; 99215; 99223; 99232; 99285; J1650; 70450; 72125; 81003; 83735; 84439; 84443; 85025; 99217; 99220; G0378; J1953

== ENCOUNTER → 2020-09-08 07:58 | Outpatient (BNVA) | payer MEDICARE, MEDICAID, SELFPAY | PROVIDERS: PCP Family Medicine; Referring Provider Family Medicine; Visit Provider Psychiatry & Neurology Neurology | DX: R69 Illness, unspecified (principal) ==

== ENCOUNTER → 2020-09-18 14:05 | Outpatient (BNVA) | payer MEDICARE, MEDICAID, SELFPAY | PROVIDERS: PCP Family Medicine; Referring Provider Family Medicine; Visit Provider Nurse Practitioner Gerontology | DX: R33.8 Other retention of urine (principal) | CPT/HCPCS: 99213 ==

== ENCOUNTER → 2020-10-14 13:50 | Outpatient (BNVA) | payer MEDICARE, MEDICAID, SELFPAY | PROVIDERS: PCP Family Medicine; Referring Provider Family Medicine; Visit Provider Psychiatry & Neurology Neurology | DX: R56.9 Unspecified convulsions (principal); Q90.9 Down syndrome, unspecified; F03.90 Unspecified dementia, unspecified severity, without behavioral disturbance, psychotic disturbance, mood disturbance, and anxiety; R29.6 Repeated falls; Z91.83 Wandering in diseases classified elsewhere | CPT/HCPCS: 99215 ==

== ENCOUNTER 2020-12-05 14:44 | Emergency (ER) | payer MEDICARE, MEDICAID, SELFPAY ==
[2020-12-05 14:51] VITALS: BP 147/79; PULSE 77; RESP 16; TEMP 36.8; O2SAT 98
[2020-12-05 15:17] VITALS: RESP 18
--- NOTE | 2020-12-05 15:17 | W.ED.GENAD ---
Discharge Plan Disposition Patient Disposition: HOME Condition: Stable Discharge Details Clinical Impression: Urinary retention Primary Care Provider: Marisol Trotter ED Provider: Bradly Roldan Home Meds and New Rx's Prescriptions: Continued polyethylene glycol 3350 [Miralax] 17 gram powder in packet 17 gm PO DAILY Qty: 30 RF: 0 B12 Active 1,000 mcg tablet,chewable 1,000 mcg PO DAILY RF: 0 folic acid 1 mg tablet 1 mg PO DAILY RF: 0 levetiracetam 500 mg tablet 500 mg PO BID Qty: 180 RF: 3 levothyroxine [Synthroid] 100 mcg tablet 100 mcg PO DAILY RF: 0 cholecalciferol (vitamin D3) 25 mcg (1,000 unit) capsule 50 mcg PO DAILY RF: 0 amoxicillin 500 mg capsule 2,000 mg PO .prior to dental RF: 0 alendronate [Fosamax] 70 mg tablet 70 mg PO QWEEK RF: 0 sertraline 50 mg tablet 50 mg PO DAILY Qty: 90 RF: 3 clonazepam 0.5 mg tablet,disintegrating 0.5 mg PO PRN MDD 1 PRN (Reason: seizure) Qty: 30 RF: 0 Discharge Instructions Instructions: Chronic Urinary Retention in Women (ED) Additional Instructions: Lacey catheter placed without difficulty. Urinalysis is unremarkable for obvious infection. Please watch for new or worsening symptoms and return to the ER for any concerns. You are being discharged today with a indwelling Lacey catheter, please contact the office of Dr. Rodriguez on Tuesday to discuss your ongoing symptoms and set up outpatient reevaluation. Medical Decision Making 60-year-old female presents with ongoing anxiety, urinary retention, to have a Lacey catheter placed. Clinically she appears well, nontoxic. Abdomen is soft, nontender. She is afebrile. Bladder scan 768cc. Case discussed with Dr. Rodriguez, plan is to have his staff come down to place indwelling Lacey catheter. We will also obtain urinalysis. Lacey catheter placed without difficulty. Urinalysis pending. Urinalysis unremarkable for infection or hematuria. Discussed findings with patient and her sister, her primary material assembler. No additional questions or concerns, comfortable discharge at this time Medical Records Medical records reviewed: Yes I reviewed the patient's medical records. Lab Data Lab results reviewed: Yes I reviewed the patient's lab results. Labs: Laboratory Tests Range/Units 12/05/20 15:50 Urine Color (Yellow) Yellow Urine Clarity (Clear) Clear Urine pH (5-8) 6.5 Ur Specific [place] (1.005-1.025) 1.010 Urine Protein (Negative) mg/dL Negative Urine Ketones (Negative) mg/dL Negative Urine Blood (Negative) Negative Urine Nitrite (Negative) Negative Urine Bilirubin (Negative) Negative Urine Urobilinogen (Up TO 0.2) EU/dL 0.2 Ur Leukocyte Esterase (Negative) Negative Urine Glucose (Negative) mg/dL Negative HPI General Mode of arrival: EMS. Date/Time Provider Initiated Documentation: 12/05/20 14:50. Limitations to Documentation: other (History of Down syndrome, dementia). Information obtained by: family and EMS. HPI Narrative: This is a 60-year-old female, past medical history of dementia, Down syndrome, previous stroke, seizures, anxiety, and urinary retention, presenting to the ER for worsening urinary retention. Patient sister states that they have been working on breathing techniques, they tried Klonopin which seems to make her too sleepy, but her symptoms have been worsening for several months. They were in contact with Dr. Rodriguez in his office multiple times today, they were hoping to have staff go to their house to place a catheter, but unfortunately this was unsuccessful. Eventually the plan was to have the patient come to the ER by EMS, Dr. Rodriguez staff would come to the ER to place the indwelling Lacey catheter, and he would be happy to follow the patient as an outpatient in his office. I did personally speak with Dr. Rodriguez to confirm this. We will also obtain a urinalysis but no additional blood work necessary. At this time no additional questions or concerns. Denies recent fever, vomiting, abdominal pain, diarrhea or constipation. No hematuria. Related Data Home Medications Medication Instructions Recorded Confirmed polyethylene glycol 3350 17 gram 17 gm PO DAILY #30 each 04/06/18 12/05/20 oral powder packet alendronate 70 mg tablet 70 mg PO QWEEK 08/12/20 12/05/20 amoxicillin 500 mg capsule 2,000 mg PO .prior to dental cap 08/12/20 12/05/20 cholecalciferol (vitamin D3) 25 50 mcg PO DAILY cap 08/12/20 12/05/20 mcg (1,000 unit) capsule levothyroxine 100 mcg tablet 100 mcg PO DAILY 08/12/20 12/05/20 mecobalamin (vitamin B12) 1,000 1,000 mcg PO DAILY 08/12/20 12/05/20 mcg chewable tablet folic acid 1 mg tablet 1 mg PO DAILY 10/14/20 12/05/20 levetiracetam 500 mg tablet 500 mg PO BID #180 tab 10/14/20 12/05/20 clonazepam 0.5 mg disintegrating 0.5 mg PO PRN PRN #30 tab MDD 1 11/27/20 12/05/20 tablet sertraline 50 mg tablet 50 mg PO DAILY #90 tab 11/27/20 12/05/20 Previous Rx's Medication Instructions Recorded polyethylene glycol 3350 17 gram 17 gm PO DAILY #30 each 04/06/18 oral powder packet levetiracetam 500 mg tablet 500 mg PO BID #180 tab 10/14/20 clonazepam 0.5 mg disintegrating 0.5 mg PO PRN PRN #30 tab MDD 1 11/27/20 tablet sertraline 50 mg tablet 50 mg PO DAILY #90 tab 11/27/20 Allergies Allergy/AdvReac Type Severity Reaction Status Date / Time dexamethasone Allergy Unknown Unverified 12/05/20 14:56 epinephrine Allergy Unknown Unverified 12/05/20 14:56 lidocaine Allergy Unknown Unverified 12/05/20 14:56 levothyroxine AdvReac alopecia Verified 12/05/20 14:56 no generic Synthroid General Stated Complaint: GenMedical ZACARIAS: 3 Review of Systems Constitutional Constitutional: Denies fever(s) Gastrointestinal Gastrointestinal: Denies abdominal pain and Denies vomiting Musculoskeletal Musculoskeletal: Denies back pain Integumentary/Breasts Skin/Breast: Denies rash [facility] Medical History Abnormal gait Anxiety Aortic stenosis Celiac disease Down syndrome Hypothyroidism Memory impairment Osteoporosis Raynauds phenomenon Urinary retention with incomplete bladder emptying Ventral hernia Vitamin D deficiency Surgical History S/P TKR (total knee replacement) Social History Smoking/Tobacco Use Status: Former Tobacco Use Smoking risk assessment performed?: Yes Alcohol Intake: never Drug use: Never Substance use type: does not use Pets and animals: Yes Pets and animals: cat(s) What type of physical activity do you participate in: walking Seatbelt use: always Do you feel safe at home: Yes Do you feel safe in your relationship?: Yes Exam Const General: cooperative, healthy appearing, comfortable and no acute distress Orientation: alert and awake HENMT Head: normal to inspection, normocephalic and atraumatic Face and sinus: normal facial exam Mouth: moist mucous membranes Eyes Conjunctivae: conjunctivae normal Neck Neck: normal visual inspection, trachea midline and supple Resp Effort & Inspection: normal respiratory effort and able to speak in complete sentences Auscultation: clear to auscultation bilaterally Cardio Rate: regular rate Rhythm: regular rhythm GI Palpation: soft and nontender Auscultation: normal bowel sounds Back/Spine/Pelvis Back: No back tenderness Skin General skin exam: no rashes or lesions noted Neuro General: patient alert, patient awake and moves all extremities Psych Appearance: grossly normal Mental Status: mental status grossly normal Course Vital Signs Vital signs: Vital Signs Temperature 36.8 C 12/05/20 14:51 Pulse 77 12/05/20 14:51 Respiratory Rate 16 12/05/20 14:51 Blood Pressure 147/79 H 12/05/20 14:51 Pulse Oximetry 98 12/05/20 14:51 Temperature 36.8 C 12/05/20 14:51 Temperature Source Skin 12/05/20 14:51 Pulse 77 12/05/20 14:51 Respiratory Rate 16 12/05/20 14:51 Respiratory Effort Non-Labored 12/05/20 14:51 Blood Pressure 147/79 H 12/05/20 14:51 Blood Pressure Position Supine 12/05/20 14:51 Pulse Oximetry 98 12/05/20 14:51 Oxygen Delivery Method Room Air 12/05/20 14:51 Oxygen Flow Rate 0 12/05/20 14:51 Pain Level 0 12/05/20 14:51
--- NOTE | 2020-12-05 15:59 | NUR.NOTE ---
Staff from Dr. Rodriguez came to ED to place a hastings cather in patient. Staff gave sister cather supplies :
[2020-12-05 16:00] LABS: Bilirubin Negative (Negative); Blood Negative (Negative); Clarity Clear (Clear); Glucose Negative (Negative); Ketones Negative (Negative); Leukocyte Esterase Negative (Negative); Nitrite Negative (Negative); Urobilinogen 0.2 EU/dL (Up TO 0.2); pH 6.5 (5-8)
== END 2020-12-05 18:50 | disposition home or self-care (01) ==
LOC: ER 17:30
PROVIDERS: Emergency Provider Physician Assistant; PCP Family Medicine
DX: R33.9 Retention of urine, unspecified (principal)
CPT/HCPCS: 51703; 99283; 81003

== ENCOUNTER 2020-12-15 16:49 | Outpatient (REF) | payer MEDICARE, MEDICAID, SELFPAY ==
[2020-12-15 19:16] LABS: HCT 43.7 % (36.0-46.0); HGB 14.2 g/dL (11.2-15.7); MCH 32.1 pg (27.0-33.0); MCHC 32.5 % (32.0-36.0); MCV 98.6 fL (80-95); MPV 11.5 fL (8.0-11.0); Platelet Count 234 10^3/uL (130-400); RBC 4.43 10^6/uL (3.93-5.22); RDW 13.1 % (11.7-14.6); RDW-SD 47.9 fL; WBC 9.11 10^3/uL (4.4-10.8)
[2020-12-15 20:24] LABS: ALT 29 U/L (14-59); AST 27 U/L (15-37); Albumin 3.1 g/dL (3.4-5.0); Alkaline Phosphatase 113 U/L (46-116); Anion Gap 8.2 mmol/L (3-11); BUN 13 mg/dL (7-18); Bilirubin, Total 0.3 mg/dL (0.2-1.0); CO2 27.8 mmol/L (21.0-32.0); CREATININE 0.8 mg/dL (0.55-1.02); Calcium 8.5 mg/dL (8.5-10.1); Chloride 103 mmol/L (98-107); Glucose 102 mg/dL (74-106); Potassium 4.4 mmol/L (3.5-5.1); Sodium 139 mmol/L (136-145); TSH 1.83 uIU/mL (0.36-3.74); Total Protein 6.8 g/dL (6.4-8.2); Vitamin B12 493 pg/mL (193-986)
[2020-12-15 20:41] LABS: Folate > 20.0 ng/mL (8.6-20.0)
== END 2020-12-15 16:50 | disposition home or self-care (01) ==
LOC: LBN 16:49
PROVIDERS: PCP Family Medicine; Visit Provider Nurse Practitioner Gerontology
DX: E03.9 Hypothyroidism, unspecified (principal); E53.8 Deficiency of other specified B group vitamins; R33.9 Retention of urine, unspecified; K90.0 Celiac disease; R56.9 Unspecified convulsions
CPT/HCPCS: 80053; 85027; 82607; 82746; 84443

== ENCOUNTER 2020-12-23 16:17 | Outpatient (REF) | payer MEDICARE, MEDICAID, SELFPAY ==
[2020-12-23 18:06] LABS: Bilirubin Negative (Negative); Blood Trace-intact (Negative); Clarity Sl Cloudy (Clear); Glucose Negative (Negative); Ketones Negative (Negative); Leukocyte Esterase Small (Negative); Nitrite Positive (Negative); Urobilinogen 0.2 EU/dL (Up TO 0.2); pH 7.5 (5-8)
[2020-12-23 18:14] LABS: Bacteria Many HPF (Negative); RBC 0-2 HPF (0-2)
[2020-12-23 18:15] LABS: C & S Indicated? Yes; Crystals Negative HPF (Negative); Epithelial Cells Few HPF (Negative); Mucus Negative (Negative)
== END 2020-12-23 16:18 | disposition home or self-care (01) ==
LOC: NCHCN 16:17
PROVIDERS: PCP Family Medicine; Visit Provider Family Medicine
DX: N39.0 Urinary tract infection, site not specified (principal); R33.9 Retention of urine, unspecified
CPT/HCPCS: 87077; 81003; 81015; 87086; 87186

== ENCOUNTER 2021-05-16 18:10 | Outpatient (REF) | payer MEDICARE, MEDICAID, SELFPAY ==
[2021-05-17 12:56] LABS: Bilirubin Negative (Negative); Blood Small (Negative); Clarity Turbid (Clear); Glucose Negative (Negative); Ketones Negative (Negative); Leukocyte Esterase Small (Negative); Nitrite Positive (Negative); Specific Gravity >= 1.030 (1.005-1.025); Urobilinogen 0.2 EU/dL (Up TO 0.2)
[2021-05-17 13:36] LABS: Bacteria Many HPF (Negative); Epithelial Cells Negative HPF (Negative); RBC 20-50 HPF (0-2); WBC >50 HPF (0-5)
[2021-05-17 13:37] LABS: C & S Indicated? Yes; Casts Negative LPF (Negative); Crystals Many Calcium Oxalate HPF (Negative); Mucus Negative (Negative)
== END 2021-05-16 18:11 | disposition home or self-care (01) ==
LOC: LBN 18:10
PROVIDERS: PCP Family Medicine; Visit Provider Nurse Practitioner
DX: N39.0 Urinary tract infection, site not specified (principal)
CPT/HCPCS: 81003; 81015; 87086